=== PATIENT | female | born 1980 | race Two or more races ===

== ENCOUNTER 2020-08-04 12:22 | Inpatient (IN) | payer MEDICAID, OTHER ==
[~2020-08-04] VITALS: Ht 160 cm; Wt 87.3 kg
[2020-08-04 13:28] LABS: Basophils # (auto) 0.1 10 ^3/uL (0-0.2); Basophils % (auto) 1.1 % (0.0-2.0); Eosinophils # (auto) 0 10 ^3/uL (0-0.8); Eosinophils % (auto) 0.5 % (0.0-7.0); Hematocrit 28.6 % (36.0-46.0); Hemoglobin 9.2 g/dL (12.2-16.2); Lymphocytes # (auto) 0.5 10 ^3/uL (0.4-5.4); Lymphocytes % (auto) 10.4 % (10.0-50.0); Mean Corpuscular Hemoglobin 28.8 pg (28.0-32.0); Mean Corpuscular Hgb Conc. 32.1 g/dL (32.0-36.0); Mean Corpuscular Volume 89.8 fL (80.0-100.0); Monocytes # (auto) 0.6 10 ^3/uL (0-1.3); Monocytes % (auto) 13.4 % (0.0-12.0); Neutrophils # (auto) 3.6 10 ^3/uL (1.6-8.6); Neutrophils % (auto) 74.6 % (37.0-80.0); Platelet Count (auto) 272 10^3/uL (140-450); Red Blood Cells 3.18 10^6/uL (4.0-5.20); Red Cell Distribution Width 17.2 % (11.8-14.3); White Blood Cell 4.8 10^3/uL (4.4-10.8)
[2020-08-04] MEDS ORDERED: ONDANSETRON HCL 4 MG/2 ML VIAL IV ONE (13:30)
[2020-08-04] MEDS ORDERED: LABETALOL HCL 5 MG/ML 4ML SYRINGE IV ONE (13:30)
[2020-08-04 13:43] LABS: INR 1.21 (0.9-1.15)
[2020-08-04 13:47] LABS: Albumin 3.1 g/dL (3.4-5.0); Calcium 8.1 mg/dL (8.5-10.1); Potassium 4.6 mmol/L (3.5-5.1)
[2020-08-04 13:49] LABS: BUN/Creatinine Ratio 10.9
[2020-08-04 13:54] LABS: Bilirubin, Total 0.9 mg/dL (0.2-1.0); Total Protein 7.4 g/dL (6.4-8.2)
[2020-08-04] MEDS ORDERED: SODIUM CHL 0.9% 1000 ML BAG XX ONE (14:30)
[2020-08-04] MEDS ORDERED: NITROGLYCERIN 0.4 MG SL TAB SL PRN ×2 (14:45→15:30)
[2020-08-04] MEDS ORDERED: MORPHINE SULF INJ 2 MG/ML SYRINGE 1ML IV PRN ×3 (14:45→15:30)
[2020-08-04] MEDS ORDERED: CARV25TA55 PO (14:54)
[2020-08-04] MEDS ORDERED: FURO80TA3 PO (14:54)
[2020-08-04] MEDS ORDERED: SEVE800T20 PO (14:54)
[2020-08-04] MEDS ORDERED: CINA60TA2 PO (14:54)
[2020-08-04] MEDS ORDERED: FERR-20 PO (14:54)
[2020-08-04] MEDS ORDERED: B-CO-5 PO (14:55)
[2020-08-04 15:05] LABS: % Iron Saturation 10.7 % (15-50)
[2020-08-04] MEDS ORDERED: ONDANSETRON HCL 4 MG/2 ML VIAL IV PRN (15:30)
[2020-08-04] MEDS ORDERED: DOCUSATE SOD 100 MG CAP PO PRN (15:30)
[2020-08-04] MEDS ORDERED: ACETAMINOPHEN 325 MG TAB PO PRN (15:30)
[2020-08-04] MEDS ORDERED: VANCOMYCIN PER PHARMACY 0 MG IV SCH (15:30)
[2020-08-04] MEDS ORDERED: B-COMPLEX W/ C & FOLIC ACID(NEPHROVITE TAB) PO ONE (15:30)
[2020-08-04] MEDS ORDERED: LORazepam 0.5 MG TAB PO PRN (15:30)
[2020-08-04] MEDS ORDERED: ALUM & MAG HYDROX-SIMETH LIQ(MAALOX) 30 ML PO PRN (15:30)
[2020-08-04] MEDS ORDERED: MEROPENEM 500MG IVPB 50 ML IV ONE (15:30)
[2020-08-04] MEDS ORDERED: FUROSEMIDE 40 MG/4 ML VIAL IV ONE (15:30)
[2020-08-04] MEDS ORDERED: HYDROcodone-ACET 5/325MG TAB PO PRN (15:30)
[2020-08-04 16:15] LABS: Hepatitis A Ab IgM Negative; Hepatitis B Core IgM Negative; Hepatitis B Surface Antigen Negative (Negative); Hepatitis C Antibody Negative (Negative)
[2020-08-04] MEDS ORDERED: VANCOMYCIN 1GM/250ML 250 ML IV ONE (18:00)
[2020-08-04] MEDS: FUROSEMIDE 40 MG/4 ML VIAL IV SCH (20:51)
[2020-08-04] MEDS: FERROUS SULFATE 325 MG TAB PO SCH (20:52)
[2020-08-04] MEDS: SEVELAMER 800 MG TAB PO SCH (20:52)
[2020-08-04 22:00] VITALS: BP 183/100
[2020-08-04] MEDS: ATORVASTATIN 20 MG TAB PO SCH (22:13)
[2020-08-04] MEDS: CARVEDILOL 12.5 MG TAB PO SCH (22:14)
[2020-08-05 05:01] VITALS: BP 148/95
[2020-08-05] MEDS: FUROSEMIDE 40 MG/4 ML VIAL IV SCH ×2 (06:41→17:54)
[2020-08-05 07:56] LABS: Basophils # (auto) 0 10 ^3/uL (0-0.2); Basophils % (auto) 0.6 % (0.0-2.0); Eosinophils # (auto) 0 10 ^3/uL (0-0.8); Eosinophils % (auto) 0.6 % (0.0-7.0); Hematocrit 29.1 % (36.0-46.0); Hemoglobin 9.3 g/dL (12.2-16.2); Lymphocytes # (auto) 0.6 10 ^3/uL (0.4-5.4); Lymphocytes % (auto) 10.1 % (10.0-50.0); Mean Corpuscular Hemoglobin 28.9 pg (28.0-32.0); Mean Corpuscular Hgb Conc. 31.8 g/dL (32.0-36.0); Monocytes # (auto) 0.8 10 ^3/uL (0-1.3); Monocytes % (auto) 13.8 % (0.0-12.0); Neutrophils # (auto) 4.2 10 ^3/uL (1.6-8.6); Neutrophils % (auto) 74.9 % (37.0-80.0); Platelet Count (auto) 233 10^3/uL (140-450); White Blood Cell 5.7 10^3/uL (4.4-10.8)
[2020-08-05] MEDS: SEVELAMER 800 MG TAB PO SCH ×3 (08:00→17:54)
[2020-08-05] MEDS: FERROUS SULFATE 325 MG TAB PO SCH ×3 (08:00→17:54)
[2020-08-05 08:16] LABS: BUN/Creatinine Ratio 9.9; Calcium 8.5 mg/dL (8.5-10.1)
[2020-08-05 09:00] VITALS: BP 147/104
[2020-08-05] MEDS ORDERED: LISINOPRIL 20 MG TAB PO ONE (10:00)
[2020-08-05] MEDS: B-COMPLEX W/ C & FOLIC ACID(NEPHROVITE TAB) PO SCH (10:00)
[2020-08-05] MEDS: CINACALCET HYDROCHLORIDE 30 MG TAB PO SCH (10:00)
[2020-08-05] MEDS: CARVEDILOL 12.5 MG TAB PO SCH ×2 (10:00→22:47)
[2020-08-05] MEDS: ASPirin 81 mg TAB PO SCH (10:00)
[2020-08-05] MEDS ORDERED: MEROPENEM 500MG IVPB 50 ML IV SCH (10:00)
[2020-08-05] MEDS ORDERED: SODIUM FERR GLUC 62.5MG/5ML 125 MG in SODIUM CHL 0.9% 100 ML IV ONE (11:15)
[2020-08-05 13:00] VITALS: BP 135/66
[2020-08-05 16:08] LABS: Urine Bacteria NONE SEEN /hpf (None Seen); Urine Blood Negative /uL (Negative); Urine Mucus FEW (None Seen); Urine Specific Gravity 1.012 (1.001-1.035); Urine WBC 4 /hpf (0 - 5)
[2020-08-05 16:23] LABS: Alcohol, Urine < 3.0 mg/dL (0-10); Amphetamine Screen, Urine POSITIVE (NEGATIVE); Barbiturate Scree,Urine NEGATIVE (NEGATIVE); Benzodiazephine Screen, Urine NEGATIVE (NEGATIVE); Cannabinoid Screen, Urine POSITIVE (NEGATIVE); Cocaine Screen, Urine NEGATIVE (NEGATIVE); Opiate Scree,Urine NEGATIVE (NEGATIVE); Phencyclidine Screen, Urine NEGATIVE (NEGATIVE)
[2020-08-05 16:44] VITALS: BP 157/94
[2020-08-05 22:00] VITALS: BP 162/101
[2020-08-05] MEDS: ATORVASTATIN 20 MG TAB PO SCH (22:46)
[2020-08-06 05:00] VITALS: BP 180/103
[2020-08-06] MEDS: FUROSEMIDE 40 MG/4 ML VIAL IV SCH ×2 (06:00→18:12)
[2020-08-06 06:52] LABS: Basophils # (auto) 0 10 ^3/uL (0-0.2); Basophils % (auto) 0.9 % (0.0-2.0); Eosinophils # (auto) 0 10 ^3/uL (0-0.8); Eosinophils % (auto) 0.4 % (0.0-7.0); Hematocrit 28.2 % (36.0-46.0); Hemoglobin 9.1 g/dL (12.2-16.2); Lymphocytes # (auto) 0.5 10 ^3/uL (0.4-5.4); Lymphocytes % (auto) 9.2 % (10.0-50.0); Mean Corpuscular Hemoglobin 29.1 pg (28.0-32.0); Mean Corpuscular Hgb Conc. 32.1 g/dL (32.0-36.0); Mean Corpuscular Volume 90.6 fL (80.0-100.0); Monocytes # (auto) 0.4 10 ^3/uL (0-1.3); Neutrophils % (auto) 80.5 % (37.0-80.0); Nucleated Red Blood Cells % 0.2 %; Platelet Count (auto) 222 10^3/uL (140-450); Red Blood Cells 3.12 10^6/uL (4.0-5.20); Red Cell Distribution Width 17.2 % (11.8-14.3); White Blood Cell 4.9 10^3/uL (4.4-10.8)
[2020-08-06] MEDS ORDERED: SODIUM CHL 0.9% 1000 ML BAG XX ONE (07:00)
[2020-08-06 09:00] VITALS: BP 179/83
[2020-08-06] MEDS: ASPirin 81 mg TAB PO SCH (09:54)
[2020-08-06] MEDS: SEVELAMER 800 MG TAB PO SCH ×3 (09:54→18:00)
[2020-08-06] MEDS: CARVEDILOL 12.5 MG TAB PO SCH ×2 (09:54→21:35)
[2020-08-06] MEDS: FERROUS SULFATE 325 MG TAB PO SCH ×4 (09:55→21:34)
[2020-08-06] MEDS: B-COMPLEX W/ C & FOLIC ACID(NEPHROVITE TAB) PO SCH (09:55)
[2020-08-06] MEDS: CINACALCET HYDROCHLORIDE 30 MG TAB PO SCH (09:55)
[2020-08-06] MEDS: LISINOPRIL 20 MG TAB PO SCH (09:55)
[2020-08-06] MEDS: SODIUM FERR GLUC 62.5MG/5ML 125 MG in SODIUM CHL 0.9% 100 ML IV SCH (12:18)
[2020-08-06 13:00] VITALS: BP 113/83
[2020-08-06 16:54] VITALS: BP 153/98
[2020-08-06] MEDS ORDERED: EPOETIN ALFA 4,000 UNIT/ML VL SC ONE (21:00)
[2020-08-06] MEDS: ATORVASTATIN 20 MG TAB PO SCH (21:34)
[2020-08-06 21:52] VITALS: BP 149/83
[2020-08-07] VITALS (7 sets, daily range): BP systolic 146–171; BP diastolic 77–118
[2020-08-07] MEDS: FERROUS SULFATE 325 MG TAB PO SCH ×5 (06:25→17:46)
[2020-08-07] MEDS: FUROSEMIDE 40 MG/4 ML VIAL IV SCH (06:25)
[2020-08-07] MEDS ORDERED: SODIUM CHL 0.9% 1000 ML BAG XX ONE (07:00)
[2020-08-07 08:07] LABS: BUN/Creatinine Ratio 9.1; Calcium 8.8 mg/dL (8.5-10.1)
[2020-08-07] MEDS: SEVELAMER 800 MG TAB PO SCH ×3 (08:46→17:47)
[2020-08-07] MEDS: B-COMPLEX W/ C & FOLIC ACID(NEPHROVITE TAB) PO SCH (10:00)
[2020-08-07] MEDS: CINACALCET HYDROCHLORIDE 30 MG TAB PO SCH (10:00)
[2020-08-07] MEDS: CARVEDILOL 12.5 MG TAB PO SCH ×2 (10:00→21:59)
[2020-08-07] MEDS: ASPirin 81 mg TAB PO SCH (10:00)
[2020-08-07] MEDS ORDERED: LACTULOSE 20Gm/30ML SOLN PO PRN (10:00)
[2020-08-07] MEDS: LISINOPRIL 20 MG TAB PO SCH (10:00)
[2020-08-07 11:15] LABS: Hematocrit 29.9 % (36.0-46.0); Hemoglobin 9.6 g/dL (12.2-16.2)
[2020-08-07] MEDS: SODIUM FERR GLUC 62.5MG/5ML 125 MG in SODIUM CHL 0.9% 100 ML IV SCH (12:16)
[2020-08-07] MEDS ORDERED: cloNIDine HCL 0.1 MG TAB PO STA (13:59)
[2020-08-07] MEDS ORDERED: cloNIDine HCL 0.1 MG TAB PO PRN (16:30)
[2020-08-07] MEDS: BUMETANIDE 2.5mg/10ml (0.25 mg/ml) INJ IV SCH (17:46)
[2020-08-07] MEDS ORDERED: FERROUS SULFATE 325 MG TAB PO SCH (18:00)
[2020-08-07] MEDS ORDERED: EPOETIN ALFA 10,000 UNIT/1 ML VIAL SC ONE (21:00)
[2020-08-07] MEDS: ATORVASTATIN 20 MG TAB PO SCH (22:00)
[2020-08-08 05:00] VITALS: BP 136/91
[2020-08-08] MEDS: BUMETANIDE 2.5mg/10ml (0.25 mg/ml) INJ IV SCH (05:25)
[2020-08-08 07:26] LABS: Basophils # (auto) 0 10 ^3/uL (0-0.2); Basophils % (auto) 0.6 % (0.0-2.0); Eosinophils # (auto) 0.1 10 ^3/uL (0-0.8); Eosinophils % (auto) 0.7 % (0.0-7.0); Hemoglobin 8.7 g/dL (12.2-16.2); Lymphocytes # (auto) 0.7 10 ^3/uL (0.4-5.4); Lymphocytes % (auto) 9.9 % (10.0-50.0); Mean Corpuscular Hemoglobin 28.7 pg (28.0-32.0); Mean Corpuscular Hgb Conc. 32.2 g/dL (32.0-36.0); Mean Corpuscular Volume 89.1 fL (80.0-100.0); Monocytes % (auto) 13.6 % (0.0-12.0); Neutrophils # (auto) 5.5 10 ^3/uL (1.6-8.6); Neutrophils % (auto) 75.2 % (37.0-80.0); Nucleated Red Blood Cells % 0.2 %; Platelet Count (auto) 233 10^3/uL (140-450); Red Blood Cells 3.03 10^6/uL (4.0-5.20); Red Cell Distribution Width 16.8 % (11.8-14.3); White Blood Cell 7.3 10^3/uL (4.4-10.8)
[2020-08-08 07:50] LABS: BUN/Creatinine Ratio 8.3; Calcium 8.5 mg/dL (8.5-10.1); Phosphorus 4.2 mg/dL (2.5-4.90); Potassium 3.8 mmol/L (3.5-5.1)
[2020-08-08 08:00] VITALS: BP 156/99
[2020-08-08] MEDS: FERROUS SULFATE 325 MG TAB PO SCH ×2 (08:48→11:33)
[2020-08-08] MEDS: CARVEDILOL 12.5 MG TAB PO SCH (08:49)
[2020-08-08] MEDS: SEVELAMER 800 MG TAB PO SCH ×2 (08:49→11:32)
[2020-08-08] MEDS: ASPirin 81 mg TAB PO SCH (08:50)
[2020-08-08] MEDS: B-COMPLEX W/ C & FOLIC ACID(NEPHROVITE TAB) PO SCH (08:50)
[2020-08-08 09:02] VITALS: BP 131/79
[2020-08-08] MEDS: LISINOPRIL 20 MG TAB PO SCH (09:55)
[2020-08-08] MEDS: CINACALCET HYDROCHLORIDE 30 MG TAB PO SCH (09:55)
[2020-08-08] MEDS ORDERED: NIFEdipine ER 30 MG TAB PO SCH ×2 (10:00)
[2020-08-08] MEDS: SODIUM FERR GLUC 62.5MG/5ML 125 MG in SODIUM CHL 0.9% 100 ML IV SCH (12:00)
== END 2020-08-08 12:40 | disposition left against medical advice (07) | DRG 52 ==
LOC: ER 12:22 → EDBD 12:22 → TELE 12:23 → TELE-WESTW 21:25
PROVIDERS: ADMIT Hospitalist; ATTEND Internal Medicine
PROC: 5A1D70Z Performance of Urinary Filtration, Intermittent, Less than 6 Hours Per Day (ICD-10-PCS; principal; 2020-08-04)
PROC: 5A1D70Z Performance of Urinary Filtration, Intermittent, Less than 6 Hours Per Day (ICD-10-PCS; 2020-08-06)
PROC: 5A1D70Z Performance of Urinary Filtration, Intermittent, Less than 6 Hours Per Day (ICD-10-PCS; 2020-08-07)
DX: G93.41 Metabolic encephalopathy (principal); I13.2 Hypertensive heart and chronic kidney disease with heart failure and with stage 5 chronic kidney disease, or end stage renal disease; I50.43 Acute on chronic combined systolic (congestive) and diastolic (congestive) heart failure; N18.6 End stage renal disease; I16.1 Hypertensive emergency; E44.1 Mild protein-calorie malnutrition; E66.9 Obesity, unspecified; E78.5 Hyperlipidemia, unspecified; Z99.2 Dependence on renal dialysis; S01.81XA Laceration without foreign body of other part of head, initial encounter; D63.1 Anemia in chronic kidney disease; D68.4 Acquired coagulation factor deficiency; E11.22 Type 2 diabetes mellitus with diabetic chronic kidney disease; E61.1 Iron deficiency; E66.01 Morbid (severe) obesity due to excess calories; Z20.828 Contact with and (suspected) exposure to other viral communicable diseases; G47.30 Sleep apnea, unspecified; I07.1 Rheumatic tricuspid insufficiency; I27.20 Pulmonary hypertension, unspecified; I42.9 Cardiomyopathy, unspecified; I70.0 Atherosclerosis of aorta; K59.00 Constipation, unspecified; M89.9 Disorder of bone, unspecified; W18.30XA Fall on same level, unspecified, initial encounter; N25.0 Renal osteodystrophy; N25.81 Secondary hyperparathyroidism of renal origin; Z88.0 Allergy status to penicillin; Z79.899 Other long term (current) drug therapy; Z91.15 Patient's noncompliance with renal dialysis; Z91.19 Patient's noncompliance with other medical treatment and regimen; Y93.89 Activity, other specified; Y92.009 Unspecified place in unspecified non-institutional (private) residence as the place of occurrence of the external cause
CPT/HCPCS: 36415; 36600; 70450; 71045; 80048; 80053; 80061; 80074; 80202; 80307; 81001; 82728; 82805; 83036; 83540; 83550; 83880; 84100; 84443; 84484; 85014; 85018; 85025; 85610; 85730; 87040; 87081; 87086; 90935; 93005; 93306; 96365; 96367; 96375; 99291; G0378; J0885; J1642; J2185; J2405; J3490

== ENCOUNTER 2020-09-04 13:43 | Inpatient (IN) | payer MEDICAID ==
[~2020-09-04] VITALS: Ht 157.5 cm; Wt 76.0 kg
[~2020-09-04 13:43] MED LIST: B-CO-5 PO; CARV25TA55 PO; CINA60TA2 PO; FERR-20 PO; FURO80TA3 PO; SEVE800T20 PO
[2020-09-04] MEDS ORDERED: ROCURONIUM 10MG/ML 10ML VIAL IV ONE ×2 (14:28→14:30)
[2020-09-04] MEDS ORDERED: ETOMIDATE (2MG/ML) 20ML VIAL IV ONE ×2 (14:28→14:30)
[2020-09-04] MEDS ORDERED: FUROSEMIDE 20 MG/2 ML VIAL IV ONE (14:45)
[2020-09-04 15:00] LABS: Hematocrit 32.9 % (36.0-46.0); Hemoglobin 10.3 g/dL (12.2-16.2); Mean Corpuscular Hemoglobin 28.6 pg (28.0-32.0); Mean Corpuscular Hgb Conc. 31.4 g/dL (32.0-36.0); Platelet Count (auto) 184 10^3/uL (140-450); Red Blood Cells 3.62 10^6/uL (4.0-5.20); Red Cell Distribution Width 17.4 % (11.8-14.3); White Blood Cell 10.8 10^3/uL (4.4-10.8)
[2020-09-04 15:22] LABS: Albumin 3.5 g/dL (3.4-5.0); Calcium 9.4 mg/dL (8.5-10.1); Magnesium 2.9 mg/dL (1.6-2.6)
[2020-09-04 15:28] LABS: BUN/Creatinine Ratio 12.3; Bilirubin, Total 1.6 mg/dL (0.2-1.0); Total Protein 7.9 g/dL (6.4-8.2)
[2020-09-04 15:33] LABS: Potassium 7.4 mmol/L (3.5-5.1)
[2020-09-04 15:35] LABS: Phosphorus 10.3 mg/dL (2.5-4.90)
[2020-09-04 15:39] LABS: Basophils % (manual) 0 (0.0-2.0); Blast Cells 0; Promyelocytes % 0; Reactive Lymphocytes 0
[2020-09-04] MEDS ORDERED: DEXTROSE (50%) 50ML SYRG IV ONE ×2 (15:45→16:15)
[2020-09-04] MEDS ORDERED: SODIUM BICARBONATE 8.4% INJ 50ML SYRINGE IV ONE (15:45)
[2020-09-04] MEDS ORDERED: CALCIUM GLUC 4.65meq/50ml D5AE 50 ML IV ONE (15:45)
[2020-09-04] MEDS ORDERED: InsuLIN REG 1unit/0.01ml Soln (100units/ml) IV ONE ×2 (15:45→16:15)
[2020-09-04] MEDS: BUMETANIDE 2.5mg/10ml (0.25 mg/ml) INJ IV SCH (16:15)
[2020-09-04] MEDS ORDERED: SODIUM ZIRCONIUM CYCL 10 GM PAK PO ONE (16:15)
[2020-09-04] MEDS ORDERED: LACTULOSE 20Gm/30ML SOLN PO ONE (16:15)
[2020-09-04] MEDS ORDERED: ASPirin 325 MG TAB PO ONE (17:00)
[2020-09-04 17:15] LABS: Band Neutrophils % (manual) 7; Eosinophils % (manual) 1 (0-7); Lymphocytes % (manual) 3 (10.0-50.0); Metamyelocytes % 1; Monocytes % (manual) 5 (0-12); Myelocytes % 1
[2020-09-04] MEDS ORDERED: ENOXAPARIN SOD 100 MG/1 ML SYRINGE SC ONE (17:15)
[2020-09-04] MEDS ORDERED: ALUM & MAG HYDROX-SIMETH LIQ(MAALOX) 30 ML PO ONE (18:15)
[2020-09-04] MEDS ORDERED: MORPHINE SULFATE 4 MG/ML SYR/VIAL IV PRN (18:15)
[2020-09-04] MEDS ORDERED: ACETAMINOPHEN 500 MG TAB PO PRN (18:15)
[2020-09-04] MEDS ORDERED: ONDANSETRON HCL 4 MG/2 ML VIAL IV PRN (18:15)
[2020-09-04] MEDS ORDERED: MORPHINE SULF INJ 2 MG/ML SYRINGE 1ML IV PRN (18:15)
[2020-09-04] MEDS ORDERED: ZOLPIDEM TARTRATE 5 MG TAB PO PRN (18:15)
[2020-09-04] MEDS ORDERED: NITROGLYCERIN 0.4 MG SL TAB SL PRN (18:15)
[2020-09-05] MEDS: BUMETANIDE 2.5mg/10ml (0.25 mg/ml) INJ IV SCH ×4 (00:23→17:29)
[2020-09-05] MEDS ORDERED: SODIUM CHL 0.9% 1000 ML BAG XX ONE (07:00)
[2020-09-05] MEDS: SEVELAMER 800 MG TAB PO SCH ×3 (08:00→17:29)
[2020-09-05 08:23] LABS: Hematocrit 32.8 % (36.0-46.0); Hemoglobin 10.5 g/dL (12.2-16.2); Mean Corpuscular Hemoglobin 28.8 pg (28.0-32.0); Mean Corpuscular Volume 90.1 fL (80.0-100.0); Platelet Count (auto) 169 10^3/uL (140-450); Red Blood Cells 3.64 10^6/uL (4.0-5.20); Red Cell Distribution Width 17.3 % (11.8-14.3); White Blood Cell 14.2 10^3/uL (4.4-10.8)
[2020-09-05 08:29] LABS: Basophils % (manual) 0 (0.0-2.0); Blast Cells 0; Eosinophils % (manual) 0 (0-7); Metamyelocytes % 0; Promyelocytes % 0; Reactive Lymphocytes 0
[2020-09-05 08:44] LABS: Albumin 3.5 g/dL (3.4-5.0); Calcium 8.6 mg/dL (8.5-10.1); Magnesium 3.1 mg/dL (1.6-2.6)
[2020-09-05 08:54] LABS: BUN/Creatinine Ratio 11.9; Bilirubin, Total 1.9 mg/dL (0.2-1.0); Total Protein 8.1 g/dL (6.4-8.2)
[2020-09-05] MEDS ORDERED: CARVEDILOL 12.5 MG TAB PO SCH (10:00)
[2020-09-05] MEDS ORDERED: cefTRIAXone 1GM/50ML D5W 50 ML IV SCH (10:15)
[2020-09-05] MEDS ORDERED: HEPARIN DRIP/D5W 100UNITS/ML 250 ML IV SCH (10:30)
[2020-09-05] MEDS ORDERED: HEPARIN SODIUM (PORCINE) 5000 UNITS/ML 1ML VIAL IV ONE (10:30)
[2020-09-05 11:00] LABS: CRP High Sensitivity 10.9 mg/dL (< 0.3)
[2020-09-05 11:02] LABS: INR 2.14 (0.9-1.15); Partial Thromboplastin Time 44.4 sec (23.0-31.2)
[2020-09-05] MEDS: FERROUS SULFATE 325 MG TAB PO SCH (11:36)
[2020-09-05] MEDS: DOCUSATE SOD 100 MG CAP PO SCH (11:36)
[2020-09-05] MEDS: B-COMPLEX W/ C & FOLIC ACID(NEPHROVITE TAB) PO SCH (11:37)
[2020-09-05] MEDS: CINACALCET HYDROCHLORIDE 30 MG TAB PO SCH (11:37)
[2020-09-05] MEDS: ZINC SULFATE 220mg CAP or TAB PO SCH (11:37)
[2020-09-05] MEDS: CHOLECALCIFEROL (VITD3) 1,000UNIT=25mCg TAB PO SCH (11:38)
[2020-09-05] MEDS: ASPirin 81 mg TAB PO SCH (11:38)
[2020-09-05] MEDS: ASCORBIC ACID 500 MG TAB PO SCH (11:38)
[2020-09-05] MEDS: hydrALAZINE HCL 20 MG/ML VL IV PRN ×3 (12:02→13:50)
[2020-09-05] MEDS: HEPARIN DRIP/D5W 100UNITS/ML 250 ML IV SCH (12:02)
[2020-09-05 12:50] LABS: Urine Bacteria FEW /hpf (None Seen); Urine Blood 3+ /uL (Negative); Urine Hyaline Cast FEW /lpf (0 - 2); Urine Specific Gravity 1.012 (1.001-1.035); Urine WBC 17 /hpf (0 - 5)
[2020-09-05] MEDS ORDERED: hydrALAZINE HCL 20 MG/ML VL IV ONE (13:00)
[2020-09-05 13:07] LABS: Band Neutrophils % (manual) 6; Lymphocytes % (manual) 4 (10.0-50.0); Monocytes % (manual) 2 (0-12); Myelocytes % 3
[2020-09-05 15:04] LABS: Albumin 3.1 g/dL (3.4-5.0); BUN/Creatinine Ratio 11.8; Calcium 8.1 mg/dL (8.5-10.1); Potassium 5.5 mmol/L (3.5-5.1)
[2020-09-05 15:27] LABS: Total Protein 7.1 g/dL (6.4-8.2)
[2020-09-05] MEDS ORDERED: IODIXANOL 320MG/ML 100ML BTL IV ONE (16:03)
[2020-09-05 19:48] LABS: INR 2.11 (0.9-1.15)
[2020-09-05] MEDS ORDERED: EPOETIN ALFA 10,000 UNIT/1 ML VIAL IV ONE (21:00)
[2020-09-05 21:21] VITALS: BP 143/89
[2020-09-05] MEDS: CARVEDILOL 12.5 MG TAB PO SCH (21:44)
[2020-09-05 22:58] VITALS: BP 143/89
[2020-09-06] VITALS (7 sets, daily range): BP systolic 113–156; BP diastolic 67–73
[2020-09-06] MEDS: BUMETANIDE 2.5mg/10ml (0.25 mg/ml) INJ IV SCH ×4 (00:25→17:44)
[2020-09-06] MEDS: LORazepam 0.5 MG TAB PO PRN (00:38)
[2020-09-06 01:20] LABS: INR 2.13 (0.9-1.15)
[2020-09-06 01:24] LABS: Partial Thromboplastin Time > 139.0 sec (23.0-31.2)
[2020-09-06] MEDS: HEPARIN DRIP/D5W 100UNITS/ML 250 ML IV SCH (03:05)
[2020-09-06 05:42] LABS: Hematocrit 28.3 % (36.0-46.0); Mean Corpuscular Hemoglobin 28.8 pg (28.0-32.0); Mean Corpuscular Volume 90.2 fL (80.0-100.0); Platelet Count (auto) 115 10^3/uL (140-450); Red Blood Cells 3.13 10^6/uL (4.0-5.20); Red Cell Distribution Width 17.2 % (11.8-14.3); White Blood Cell 8.9 10^3/uL (4.4-10.8)
[2020-09-06 05:46] LABS: Basophils % (manual) 0 (0.0-2.0); Blast Cells 0; Eosinophils % (manual) 0 (0-7); Metamyelocytes % 0; Monocytes % (manual) 0 (0-12); Promyelocytes % 0; Reactive Lymphocytes 0
[2020-09-06 06:05] LABS: Albumin 2.6 g/dL (3.4-5.0); BUN/Creatinine Ratio 13.3; Calcium 7.7 mg/dL (8.5-10.1); Magnesium 2.8 mg/dL (1.6-2.6)
[2020-09-06 06:08] LABS: Potassium 5.9 mmol/L (3.5-5.1)
[2020-09-06 06:09] LABS: Bilirubin, Total 1.6 mg/dL (0.2-1.0); Total Protein 6.2 g/dL (6.4-8.2)
[2020-09-06 06:32] LABS: Band Neutrophils % (manual) 17; Lymphocytes % (manual) 3 (10.0-50.0); Myelocytes % 1
[2020-09-06] MEDS ORDERED: SODIUM CHL 0.9% 1000 ML BAG XX ONE ×2 (07:00→08:00)
[2020-09-06] MEDS: SEVELAMER 800 MG TAB PO SCH ×3 (08:00→17:43)
[2020-09-06] MEDS: FERROUS SULFATE 325 MG TAB PO SCH (08:00)
[2020-09-06] MEDS: CHOLECALCIFEROL (VITD3) 1,000UNIT=25mCg TAB PO SCH (10:00)
[2020-09-06] MEDS: CINACALCET HYDROCHLORIDE 30 MG TAB PO SCH (10:00)
[2020-09-06] MEDS: ZINC SULFATE 220mg CAP or TAB PO SCH (10:00)
[2020-09-06] MEDS: ASPirin 81 mg TAB PO SCH (10:00)
[2020-09-06] MEDS: CARVEDILOL 12.5 MG TAB PO SCH ×2 (10:00→22:50)
[2020-09-06] MEDS: DOCUSATE SOD 100 MG CAP PO SCH (10:00)
[2020-09-06] MEDS: B-COMPLEX W/ C & FOLIC ACID(NEPHROVITE TAB) PO SCH (10:00)
[2020-09-06] MEDS: ASCORBIC ACID 500 MG TAB PO SCH (10:00)
[2020-09-06] MEDS: cefTRIAXone 1GM/50ML D5W 50 ML IV SCH (12:00)
[2020-09-06] MEDS: DexAMETHasone SOD PHOS 10MG/1ML VIAL INJ IV SCH (12:05)
[2020-09-06] MEDS: AZITHROMYCIN 500MG/ 250ML 250 ML IV SCH (12:56)
[2020-09-06] MEDS ORDERED: REMDESIVIR PER PHARMACY 0 ML IV SCH (17:00)
[2020-09-06] MEDS ORDERED: EPOETIN ALFA 4,000 UNIT/ML VL SC ONE (21:00)
[2020-09-06] MEDS ORDERED: ACETAMINOPHEN 650 MG RECT SUPP PR PRN (21:30)
[2020-09-07] MEDS: BUMETANIDE 2.5mg/10ml (0.25 mg/ml) INJ IV SCH ×4 (00:38→18:26)
[2020-09-07 05:00] VITALS: BP 115/58
[2020-09-07 07:05] LABS: Basophils # (auto) 0 10 ^3/uL (0-0.2); Basophils % (auto) 0.2 % (0.0-2.0); Eosinophils # (auto) 0 10 ^3/uL (0-0.8); Hematocrit 26.4 % (36.0-46.0); Hemoglobin 8.5 g/dL (12.2-16.2); Lymphocytes # (auto) 0.4 10 ^3/uL (0.4-5.4); Lymphocytes % (auto) 3.7 % (10.0-50.0); Mean Corpuscular Hemoglobin 29.1 pg (28.0-32.0); Mean Corpuscular Hgb Conc. 32.1 g/dL (32.0-36.0); Mean Corpuscular Volume 90.7 fL (80.0-100.0); Monocytes # (auto) 0.5 10 ^3/uL (0-1.3); Monocytes % (auto) 5.3 % (0.0-12.0); Neutrophils # (auto) 8.8 10 ^3/uL (1.6-8.6); Neutrophils % (auto) 90.8 % (37.0-80.0); Platelet Count (auto) 89 10^3/uL (140-450); Red Blood Cells 2.91 10^6/uL (4.0-5.20); Red Cell Distribution Width 17.2 % (11.8-14.3); White Blood Cell 9.7 10^3/uL (4.4-10.8)
[2020-09-07 07:27] LABS: INR 1.42 (0.9-1.15); Partial Thromboplastin Time 41.9 sec (23.0-31.2)
[2020-09-07 07:28] LABS: Albumin 2.2 g/dL (3.4-5.0); BUN/Creatinine Ratio 15.1; Bilirubin, Total 1.1 mg/dL (0.2-1.0); CRP High Sensitivity 9.44 mg/dL (< 0.3); Calcium 7.7 mg/dL (8.5-10.1); Magnesium 2.5 mg/dL (1.6-2.6); Total Protein 5.5 g/dL (6.4-8.2)
[2020-09-07] MEDS: FERROUS SULFATE 325 MG TAB PO SCH (08:00)
[2020-09-07] MEDS: SEVELAMER 800 MG TAB PO SCH ×3 (08:00→18:00)
[2020-09-07 09:00] VITALS: BP 111/69
[2020-09-07] MEDS: CARVEDILOL 12.5 MG TAB PO SCH ×2 (09:50→22:00)
[2020-09-07] MEDS: ASPirin 81 mg TAB PO SCH (09:50)
[2020-09-07] MEDS: DOCUSATE SOD 100 MG CAP PO SCH (09:50)
[2020-09-07] MEDS: ZINC SULFATE 220mg CAP or TAB PO SCH (09:50)
[2020-09-07] MEDS: CINACALCET HYDROCHLORIDE 30 MG TAB PO SCH (09:51)
[2020-09-07] MEDS: B-COMPLEX W/ C & FOLIC ACID(NEPHROVITE TAB) PO SCH (09:51)
[2020-09-07] MEDS: ASCORBIC ACID 500 MG TAB PO SCH (09:51)
[2020-09-07] MEDS: CHOLECALCIFEROL (VITD3) 1,000UNIT=25mCg TAB PO SCH (09:51)
[2020-09-07] MEDS: cefTRIAXone 1GM/50ML D5W 50 ML IV SCH (11:30)
[2020-09-07] MEDS: DexAMETHasone SOD PHOS 10MG/1ML VIAL INJ IV SCH (11:31)
[2020-09-07] MEDS: AZITHROMYCIN 500MG/ 250ML 250 ML IV SCH (11:31)
[2020-09-07] MEDS: PANTOPRAZOLE 40 MG/10 ML VIAL INJ IV SCH ×2 (11:31→22:04)
[2020-09-07] MEDS: HEPARIN DRIP/D5W 100UNITS/ML 250 ML IV SCH (12:23)
[2020-09-07 13:00] VITALS: BP 114/64
[2020-09-07] MEDS ORDERED: REMDESIVIR 200 MG in NS 210ml LOADING DOSE ADULT IV ONE (15:00)
[2020-09-07 17:00] VITALS: BP 126/72
[2020-09-07 20:00] VITALS: BP 115/83
[2020-09-07 22:00] VITALS: BP 115/83
[2020-09-08] MEDS: BUMETANIDE 2.5mg/10ml (0.25 mg/ml) INJ IV SCH ×4 (00:19→18:09)
[2020-09-08 05:00] VITALS: BP 118/74
[2020-09-08 06:28] LABS: Albumin 2.1 g/dL (3.4-5.0); Calcium 7.1 mg/dL (8.5-10.1); Magnesium 2.8 mg/dL (1.6-2.6); Potassium 5.4 mmol/L (3.5-5.1)
[2020-09-08 06:33] LABS: % Iron Saturation 13.7 % (15-50)
[2020-09-08 06:37] LABS: BUN/Creatinine Ratio 15.5; Bilirubin, Total 0.8 mg/dL (0.2-1.0); CRP High Sensitivity 8.42 mg/dL (< 0.3); Pre Albumin 7.9 mg/dL (20.0-40.0); Total Protein 5.8 g/dL (6.4-8.2)
[2020-09-08 06:54] LABS: Basophils # (auto) 0.1 10 ^3/uL (0-0.2); Basophils % (auto) 0.5 % (0.0-2.0); Eosinophils # (auto) 0 10 ^3/uL (0-0.8); Hematocrit 26.9 % (36.0-46.0); Hemoglobin 8.6 g/dL (12.2-16.2); Lymphocytes # (auto) 0.3 10 ^3/uL (0.4-5.4); Lymphocytes % (auto) 2.4 % (10.0-50.0); Mean Corpuscular Hemoglobin 29.3 pg (28.0-32.0); Mean Corpuscular Hgb Conc. 31.9 g/dL (32.0-36.0); Mean Corpuscular Volume 91.8 fL (80.0-100.0); Monocytes # (auto) 0.7 10 ^3/uL (0-1.3); Monocytes % (auto) 6.1 % (0.0-12.0); Neutrophils # (auto) 10.1 10 ^3/uL (1.6-8.6); Nucleated Red Blood Cells % 1.4 %; Platelet Count (auto) 74 10^3/uL (140-450); Red Blood Cells 2.93 10^6/uL (4.0-5.20); Red Cell Distribution Width 17.8 % (11.8-14.3); White Blood Cell 11.1 10^3/uL (4.4-10.8)
[2020-09-08 06:56] LABS: INR 1.19 (0.9-1.15); Partial Thromboplastin Time 54.8 sec (23.0-31.2)
[2020-09-08 09:00] VITALS: BP 136/72
[2020-09-08] MEDS: cefTRIAXone 1GM/50ML D5W 50 ML IV SCH (09:18)
[2020-09-08] MEDS: PANTOPRAZOLE 40 MG/10 ML VIAL INJ IV SCH ×2 (09:18→21:34)
[2020-09-08] MEDS: ZINC SULFATE 220mg CAP or TAB PO SCH (09:19)
[2020-09-08] MEDS: ASPirin 81 mg TAB PO SCH (09:19)
[2020-09-08] MEDS: B-COMPLEX W/ C & FOLIC ACID(NEPHROVITE TAB) PO SCH (09:19)
[2020-09-08] MEDS: SEVELAMER 800 MG TAB PO SCH ×3 (09:20→18:09)
[2020-09-08] MEDS: ASCORBIC ACID 500 MG TAB PO SCH (09:20)
[2020-09-08] MEDS: FERROUS SULFATE 325 MG TAB PO SCH (09:21)
[2020-09-08] MEDS: DexAMETHasone SOD PHOS 10MG/1ML VIAL INJ IV SCH (09:21)
[2020-09-08] MEDS: CHOLECALCIFEROL (VITD3) 1,000UNIT=25mCg TAB PO SCH (09:21)
[2020-09-08 09:41] LABS: Ferritin 1157.2 ng/mL (10-322); Folate (Folic Acid) 5.71 ng/mL (5.38-24)
[2020-09-08] MEDS: CINACALCET HYDROCHLORIDE 30 MG TAB PO SCH (09:48)
[2020-09-08] MEDS: CARVEDILOL 12.5 MG TAB PO SCH ×2 (09:48→21:35)
[2020-09-08] MEDS: DOCUSATE SOD 100 MG CAP PO SCH (09:48)
[2020-09-08] MEDS: AZITHROMYCIN 500MG/ 250ML 250 ML IV SCH (09:50)
[2020-09-08 12:00] VITALS: BP 131/73
[2020-09-08] MEDS ORDERED: REMDESIVIR IV SCH (15:00)
[2020-09-08] MEDS ORDERED: REMDESIVIR 100 MG in SODIUM CHL 0.9% 250 ML IV SCH (15:00)
[2020-09-08] MEDS ORDERED: SODIUM CHL 0.9% IV SCH (15:00)
[2020-09-08] MEDS: HEPARIN DRIP/D5W 100UNITS/ML 250 ML IV SCH (17:56)
[2020-09-08 21:48] LABS: INR 1.21 (0.9-1.15); Partial Thromboplastin Time 52.2 sec (23.0-31.2)
[2020-09-08 22:00] VITALS: BP 137/104
[2020-09-09] MEDS: BUMETANIDE 2.5mg/10ml (0.25 mg/ml) INJ IV SCH ×4 (01:04→17:49)
[2020-09-09 05:00] VITALS: BP 149/83
[2020-09-09 05:14] LABS: INR 1.23 (0.9-1.15); Partial Thromboplastin Time 48.6 sec (23.0-31.2)
[2020-09-09 05:26] LABS: CRP High Sensitivity 7.2 mg/dL (< 0.3)
[2020-09-09] MEDS: HEPARIN DRIP/D5W 100UNITS/ML 250 ML IV SCH (06:45)
[2020-09-09] MEDS: SEVELAMER 800 MG TAB PO SCH ×3 (08:00→18:13)
[2020-09-09] MEDS: FERROUS SULFATE 325 MG TAB PO SCH (08:00)
[2020-09-09 12:00] VITALS: BP 142/67
[2020-09-09] MEDS: ZINC SULFATE 220mg CAP or TAB PO SCH (13:15)
[2020-09-09] MEDS: B-COMPLEX W/ C & FOLIC ACID(NEPHROVITE TAB) PO SCH (13:15)
[2020-09-09] MEDS: ASCORBIC ACID 500 MG TAB PO SCH (13:15)
[2020-09-09] MEDS: ASPirin 81 mg TAB PO SCH (13:15)
[2020-09-09] MEDS: DexAMETHasone SOD PHOS 10MG/1ML VIAL INJ IV SCH (13:15)
[2020-09-09] MEDS: CINACALCET HYDROCHLORIDE 30 MG TAB PO SCH (13:15)
[2020-09-09] MEDS: PANTOPRAZOLE 40 MG/10 ML VIAL INJ IV SCH ×2 (13:15→22:11)
[2020-09-09] MEDS: cefTRIAXone 1GM/50ML D5W 50 ML IV SCH (13:15)
[2020-09-09] MEDS: CARVEDILOL 12.5 MG TAB PO SCH ×2 (13:15→22:00)
[2020-09-09] MEDS: CHOLECALCIFEROL (VITD3) 1,000UNIT=25mCg TAB PO SCH (13:15)
[2020-09-09] MEDS: DOCUSATE SOD 100 MG CAP PO SCH (13:29)
[2020-09-09] MEDS: AZITHROMYCIN 500MG/ 250ML 250 ML IV SCH (14:00)
[2020-09-09 17:00] VITALS: BP 86/57
[2020-09-09] MEDS ORDERED: ALBUMIN 25% 100 ML IV ONE (17:30)
[2020-09-09 22:00] VITALS: BP 101/55
[2020-09-10] VITALS (7 sets, daily range): BP systolic 92–146; BP diastolic 64–80
[2020-09-10] MEDS: BUMETANIDE 2.5mg/10ml (0.25 mg/ml) INJ IV SCH ×4 (00:57→18:00)
[2020-09-10] MEDS ORDERED: REMDESIVIR IV ONE (01:00)
[2020-09-10] MEDS ORDERED: SODIUM CHL 0.9% IV ONE (01:00)
[2020-09-10] MEDS: SEVELAMER 800 MG TAB PO SCH ×3 (08:00→18:00)
[2020-09-10] MEDS: FERROUS SULFATE 325 MG TAB PO SCH (08:00)
[2020-09-10] MEDS ORDERED: SODIUM CHL 0.9% 1000 ML BAG XX ONE (08:45)
[2020-09-10] MEDS: cefTRIAXone 1GM/50ML D5W 50 ML IV SCH (09:00)
[2020-09-10] MEDS: AZITHROMYCIN 500MG/ 250ML 250 ML IV SCH (10:00)
[2020-09-10] MEDS: DOCUSATE SOD 100 MG CAP PO SCH (10:00)
[2020-09-10 10:52] LABS: Basophils # (auto) 0 10 ^3/uL (0-0.2); Eosinophils # (auto) 0 10 ^3/uL (0-0.8); Hemoglobin 8.3 g/dL (12.2-16.2); Lymphocytes # (auto) 0.4 10 ^3/uL (0.4-5.4); Neutrophils # (auto) 13.7 10 ^3/uL (1.6-8.6)
[2020-09-10 10:54] LABS: Basophils % (auto) 0.1 % (0.0-2.0); Hematocrit 26.1 % (36.0-46.0); Lymphocytes % (auto) 2.6 % (10.0-50.0); Mean Corpuscular Hemoglobin 28.9 pg (28.0-32.0); Mean Corpuscular Hgb Conc. 31.9 g/dL (32.0-36.0); Mean Corpuscular Volume 90.4 fL (80.0-100.0); Monocytes # (auto) 1.1 10 ^3/uL (0-1.3); Monocytes % (auto) 7.5 % (0.0-12.0); Neutrophils % (auto) 89.8 % (37.0-80.0); Nucleated Red Blood Cells % 1.2 %; Platelet Count (auto) 82 10^3/uL (140-450); Red Blood Cells 2.89 10^6/uL (4.0-5.20); Red Cell Distribution Width 18.1 % (11.8-14.3); White Blood Cell 15.2 10^3/uL (4.4-10.8)
[2020-09-10 11:11] LABS: BUN/Creatinine Ratio 17.2; Calcium 6.8 mg/dL (8.5-10.1); Magnesium 2.4 mg/dL (1.6-2.6); Potassium 4.3 mmol/L (3.5-5.1)
[2020-09-10 11:20] LABS: Bilirubin, Total 0.7 mg/dL (0.2-1.0); CRP High Sensitivity 6.46 mg/dL (< 0.3); Phosphorus 5.2 mg/dL (2.5-4.90); Total Protein 7.1 g/dL (6.4-8.2)
[2020-09-10] MEDS: ASPirin 81 mg TAB PO SCH (13:12)
[2020-09-10] MEDS: PANTOPRAZOLE 40 MG/10 ML VIAL INJ IV SCH ×2 (13:12→21:38)
[2020-09-10] MEDS: DexAMETHasone SOD PHOS 10MG/1ML VIAL INJ IV SCH (13:12)
[2020-09-10] MEDS: ZINC SULFATE 220mg CAP or TAB PO SCH (13:13)
[2020-09-10] MEDS: ASCORBIC ACID 500 MG TAB PO SCH (13:14)
[2020-09-10] MEDS: CARVEDILOL 12.5 MG TAB PO SCH ×2 (13:14→21:35)
[2020-09-10] MEDS: CHOLECALCIFEROL (VITD3) 1,000UNIT=25mCg TAB PO SCH (13:14)
[2020-09-10] MEDS: CINACALCET HYDROCHLORIDE 30 MG TAB PO SCH (13:14)
[2020-09-10] MEDS: B-COMPLEX W/ C & FOLIC ACID(NEPHROVITE TAB) PO SCH (14:48)
[2020-09-10] MEDS: SODIUM CHL 0.9% IV SCH (15:38)
[2020-09-10] MEDS: REMDESIVIR IV SCH (15:38)
[2020-09-10] MEDS ORDERED: EPOETIN ALFA 4,000 UNIT/ML VL SC ONE (21:00)
[2020-09-11] MEDS: BUMETANIDE 2.5mg/10ml (0.25 mg/ml) INJ IV SCH ×4 (05:47→18:23)
[2020-09-11] MEDS: FERROUS SULFATE 325 MG TAB PO SCH (08:56)
[2020-09-11] MEDS: SEVELAMER 800 MG TAB PO SCH ×3 (08:56→18:23)
[2020-09-11] MEDS: cefTRIAXone 1GM/50ML D5W 50 ML IV SCH (08:56)
[2020-09-11 09:00] VITALS: BP 139/105
[2020-09-11] MEDS: DexAMETHasone SOD PHOS 10MG/1ML VIAL INJ IV SCH (09:51)
[2020-09-11] MEDS: AZITHROMYCIN 500MG/ 250ML 250 ML IV SCH (09:51)
[2020-09-11] MEDS: ASPirin 81 mg TAB PO SCH (09:51)
[2020-09-11] MEDS: PANTOPRAZOLE 40 MG/10 ML VIAL INJ IV SCH ×2 (09:51→21:57)
[2020-09-11] MEDS: ZINC SULFATE 220mg CAP or TAB PO SCH (09:52)
[2020-09-11] MEDS: CINACALCET HYDROCHLORIDE 30 MG TAB PO SCH (09:53)
[2020-09-11] MEDS: B-COMPLEX W/ C & FOLIC ACID(NEPHROVITE TAB) PO SCH (09:53)
[2020-09-11] MEDS: CHOLECALCIFEROL (VITD3) 1,000UNIT=25mCg TAB PO SCH (09:54)
[2020-09-11] MEDS: ASCORBIC ACID 500 MG TAB PO SCH (09:54)
[2020-09-11] MEDS: DOCUSATE SOD 100 MG CAP PO SCH (10:00)
[2020-09-11] MEDS: CARVEDILOL 12.5 MG TAB PO SCH ×2 (10:06→21:57)
[2020-09-11 10:37] LABS: Albumin 2.6 g/dL (3.4-5.0); Calcium 6.3 mg/dL (8.5-10.1); Potassium 4.8 mmol/L (3.5-5.1)
[2020-09-11 10:40] LABS: BUN/Creatinine Ratio 16.1; Bilirubin, Total 0.6 mg/dL (0.2-1.0); Phosphorus 6.7 mg/dL (2.5-4.90); Total Protein 6.5 g/dL (6.4-8.2)
[2020-09-11 13:00] VITALS: BP 132/85
[2020-09-11] MEDS: REMDESIVIR IV SCH (15:15)
[2020-09-11] MEDS: SODIUM CHL 0.9% IV SCH (15:15)
[2020-09-11 17:00] VITALS: BP 149/80
[2020-09-11 21:55] VITALS: BP 132/92
[2020-09-12] MEDS: BUMETANIDE 2.5mg/10ml (0.25 mg/ml) INJ IV SCH ×4 (01:05→18:20)
[2020-09-12 05:00] VITALS: BP 161/89
[2020-09-12] MEDS ORDERED: SODIUM CHL 0.9% 1000 ML BAG XX ONE (07:00)
[2020-09-12 08:00] VITALS: BP 161/89
[2020-09-12] MEDS: FERROUS SULFATE 325 MG TAB PO SCH (08:29)
[2020-09-12] MEDS: SEVELAMER 800 MG TAB PO SCH ×3 (08:30→18:20)
[2020-09-12 09:00] VITALS: BP 148/89
[2020-09-12] MEDS: DOCUSATE SOD 100 MG CAP PO SCH (10:00)
[2020-09-12] MEDS: cefTRIAXone 1GM/50ML D5W 50 ML IV SCH (10:10)
[2020-09-12] MEDS: DexAMETHasone SOD PHOS 10MG/1ML VIAL INJ IV SCH (10:11)
[2020-09-12] MEDS: PANTOPRAZOLE 40 MG/10 ML VIAL INJ IV SCH ×2 (10:11→22:14)
[2020-09-12 11:13] LABS: Albumin 2.5 g/dL (3.4-5.0); Calcium 6.6 mg/dL (8.5-10.1); Potassium 5.2 mmol/L (3.5-5.1)
[2020-09-12 11:18] LABS: BUN/Creatinine Ratio 16.5; Bilirubin, Total 0.6 mg/dL (0.2-1.0); Total Protein 6.1 g/dL (6.4-8.2)
[2020-09-12 13:00] VITALS: BP 133/77
[2020-09-12] MEDS: SODIUM CHL 0.9% IV SCH (15:30)
[2020-09-12] MEDS: REMDESIVIR IV SCH (15:30)
[2020-09-12] MEDS: ZINC SULFATE 220mg CAP or TAB PO SCH (16:01)
[2020-09-12] MEDS: ASPirin 81 mg TAB PO SCH (16:01)
[2020-09-12] MEDS: CINACALCET HYDROCHLORIDE 30 MG TAB PO SCH (16:03)
[2020-09-12] MEDS: B-COMPLEX W/ C & FOLIC ACID(NEPHROVITE TAB) PO SCH (16:03)
[2020-09-12] MEDS: ASCORBIC ACID 500 MG TAB PO SCH (16:03)
[2020-09-12] MEDS: CARVEDILOL 12.5 MG TAB PO SCH ×2 (16:03→22:15)
[2020-09-12] MEDS: AZITHROMYCIN 250 MG TAB PO SCH (16:04)
[2020-09-12] MEDS: CHOLECALCIFEROL (VITD3) 1,000UNIT=25mCg TAB PO SCH (16:04)
[2020-09-12 17:00] VITALS: BP 140/95
[2020-09-12] MEDS ORDERED: EPOETIN ALFA 10,000 UNIT/1 ML VIAL SC ONE (21:00)
[2020-09-12 22:00] VITALS: BP 192/93
[2020-09-12] MEDS: LORazepam 0.5 MG TAB PO PRN (22:15)
[2020-09-13 05:00] VITALS: BP 167/90
[2020-09-13 09:00] VITALS: BP 144/7
[2020-09-13 10:25] LABS: Hemoglobin 7.2 g/dL (12.2-16.2)
[2020-09-13 10:27] LABS: Hematocrit 22.6 % (36.0-46.0); Mean Corpuscular Hemoglobin 28.9 pg (28.0-32.0); Mean Corpuscular Hgb Conc. 31.8 g/dL (32.0-36.0); Mean Corpuscular Volume 90.9 fL (80.0-100.0); Platelet Count (auto) 130 10^3/uL (140-450); Red Blood Cells 2.48 10^6/uL (4.0-5.20); Red Cell Distribution Width 19.2 % (11.8-14.3); White Blood Cell 15.9 10^3/uL (4.4-10.8)
[2020-09-13 10:41] LABS: Basophils % (manual) 0 (0.0-2.0); Blast Cells 0; Eosinophils % (manual) 0 (0-7); Metamyelocytes % 0; Myelocytes % 0; Promyelocytes % 0; Reactive Lymphocytes 0
[2020-09-13 11:03] LABS: Potassium 4.8 mmol/L (3.5-5.1)
[2020-09-13 11:33] LABS: Albumin 2.4 g/dL (3.4-5.0); BUN/Creatinine Ratio 14.6; Bilirubin, Total 0.6 mg/dL (0.2-1.0); Calcium 7.2 mg/dL (8.5-10.1); Magnesium 2.7 mg/dL (1.6-2.6); Total Protein 6.2 g/dL (6.4-8.2)
[2020-09-13] MEDS: ZINC SULFATE 220mg CAP or TAB PO SCH (12:30)
[2020-09-13] MEDS: AZITHROMYCIN 250 MG TAB PO SCH (12:30)
[2020-09-13] MEDS: PANTOPRAZOLE 40 MG/10 ML VIAL INJ IV SCH ×2 (12:30→22:23)
[2020-09-13] MEDS: CHOLECALCIFEROL (VITD3) 1,000UNIT=25mCg TAB PO SCH (12:30)
[2020-09-13] MEDS: ASCORBIC ACID 500 MG TAB PO SCH (12:30)
[2020-09-13] MEDS: DexAMETHasone SOD PHOS 10MG/1ML VIAL INJ IV SCH (12:30)
[2020-09-13] MEDS: ASPirin 81 mg TAB PO SCH (12:30)
[2020-09-13] MEDS: CINACALCET HYDROCHLORIDE 30 MG TAB PO SCH (12:30)
[2020-09-13] MEDS: FERROUS SULFATE 325 MG TAB PO SCH (12:30)
[2020-09-13] MEDS: SEVELAMER 800 MG TAB PO SCH ×3 (12:30→18:00)
[2020-09-13] MEDS: DOCUSATE SOD 100 MG CAP PO SCH (12:30)
[2020-09-13] MEDS: B-COMPLEX W/ C & FOLIC ACID(NEPHROVITE TAB) PO SCH (12:30)
[2020-09-13] MEDS: CARVEDILOL 12.5 MG TAB PO SCH ×2 (12:30→22:24)
[2020-09-13 12:42] VITALS: BP 152/96
[2020-09-13] MEDS: cefTRIAXone 1GM/50ML D5W 50 ML IV SCH (12:52)
[2020-09-13 14:20] LABS: Band Neutrophils % (manual) 3
[2020-09-13 14:21] LABS: Lymphocytes % (manual) 2 (10.0-50.0); Monocytes % (manual) 5 (0-12)
[2020-09-13 17:00] VITALS: BP 151/87
[2020-09-13 22:00] VITALS: BP 162/84
[2020-09-14 05:00] VITALS: BP 150/71
[2020-09-14 06:33] LABS: Basophils # (auto) 0 10 ^3/uL (0-0.2); Eosinophils # (auto) 0 10 ^3/uL (0-0.8); Hemoglobin 7.3 g/dL (12.2-16.2); Mean Corpuscular Hemoglobin 29.3 pg (28.0-32.0); Nucleated Red Blood Cells % 0.3 %; White Blood Cell 15.1 10^3/uL (4.4-10.8)
[2020-09-14 06:36] LABS: Basophils % (auto) 0.1 % (0.0-2.0); Hematocrit 22.8 % (36.0-46.0); Lymphocytes # (auto) 0.3 10 ^3/uL (0.4-5.4); Lymphocytes % (auto) 2.2 % (10.0-50.0); Mean Corpuscular Hgb Conc. 31.9 g/dL (32.0-36.0); Mean Corpuscular Volume 91.7 fL (80.0-100.0); Monocytes # (auto) 0.8 10 ^3/uL (0-1.3); Monocytes % (auto) 5.1 % (0.0-12.0); Neutrophils % (auto) 92.6 % (37.0-80.0); Platelet Count (auto) 151 10^3/uL (140-450); Red Blood Cells 2.49 10^6/uL (4.0-5.20)
[2020-09-14 06:42] LABS: Red Cell Distribution Width 20.5 % (11.8-14.3)
[2020-09-14 07:00] LABS: Albumin 2.4 g/dL (3.4-5.0); BUN/Creatinine Ratio 16.5; Bilirubin, Total 0.6 mg/dL (0.2-1.0); CRP High Sensitivity 11.3 mg/dL (< 0.3); Calcium 7.2 mg/dL (8.5-10.1); Total Protein 6.1 g/dL (6.4-8.2)
[2020-09-14 08:00] VITALS: BP 109/77
[2020-09-14] MEDS: SEVELAMER 800 MG TAB PO SCH ×3 (09:08→17:41)
[2020-09-14] MEDS: FERROUS SULFATE 325 MG TAB PO SCH (09:08)
[2020-09-14] MEDS: cefTRIAXone 1GM/50ML D5W 50 ML IV SCH (09:08)
[2020-09-14] MEDS: DexAMETHasone SOD PHOS 10MG/1ML VIAL INJ IV SCH (11:41)
[2020-09-14] MEDS: ASPirin 81 mg TAB PO SCH (11:41)
[2020-09-14] MEDS: DOCUSATE SOD 100 MG CAP PO SCH (11:41)
[2020-09-14] MEDS: ZINC SULFATE 220mg CAP or TAB PO SCH (11:41)
[2020-09-14] MEDS: PANTOPRAZOLE 40 MG/10 ML VIAL INJ IV SCH ×2 (11:41→23:33)
[2020-09-14] MEDS: CARVEDILOL 12.5 MG TAB PO SCH ×2 (11:42→23:33)
[2020-09-14] MEDS: CHOLECALCIFEROL (VITD3) 1,000UNIT=25mCg TAB PO SCH (11:42)
[2020-09-14] MEDS: B-COMPLEX W/ C & FOLIC ACID(NEPHROVITE TAB) PO SCH (11:42)
[2020-09-14] MEDS: ASCORBIC ACID 500 MG TAB PO SCH (11:42)
[2020-09-14] MEDS: AZITHROMYCIN 250 MG TAB PO SCH (11:43)
[2020-09-14 12:00] VITALS: BP 141/81
[2020-09-14] MEDS: CINACALCET HYDROCHLORIDE 30 MG TAB PO SCH (13:14)
[2020-09-14 17:00] VITALS: BP 150/73
[2020-09-14 22:00] VITALS: BP 139/85
[2020-09-14] MEDS: LORazepam 0.5 MG TAB PO PRN (23:33)
[2020-09-15] MEDS ORDERED: SODIUM CHL 0.9% 1000 ML BAG XX ONE (07:00)
[2020-09-15 07:31] LABS: Hemoglobin 7.6 g/dL (12.2-16.2); Red Blood Cells 2.58 10^6/uL (4.0-5.20)
[2020-09-15 07:34] LABS: Mean Corpuscular Hemoglobin 29.4 pg (28.0-32.0); Mean Corpuscular Hgb Conc. 31.7 g/dL (32.0-36.0); Platelet Count (auto) 174 10^3/uL (140-450); White Blood Cell 14.4 10^3/uL (4.4-10.8)
[2020-09-15 07:39] LABS: Red Cell Distribution Width 20.7 % (11.8-14.3)
[2020-09-15 07:40] LABS: Band Neutrophils % (manual) 0; Basophils % (manual) 0 (0.0-2.0); Blast Cells 0; Eosinophils % (manual) 0 (0-7); Metamyelocytes % 0; Promyelocytes % 0; Reactive Lymphocytes 0
[2020-09-15] MEDS: FERROUS SULFATE 325 MG TAB PO SCH (08:00)
[2020-09-15] MEDS: SEVELAMER 800 MG TAB PO SCH ×3 (08:00→18:00)
[2020-09-15 08:20] LABS: Potassium 5.4 mmol/L (3.5-5.1)
[2020-09-15 08:40] VITALS: BP 143/86
[2020-09-15 08:40] LABS: Lymphocytes % (manual) 1 (10.0-50.0); Monocytes % (manual) 5 (0-12); Myelocytes % 1
[2020-09-15 09:00] VITALS: BP 143/86
[2020-09-15] MEDS: cefTRIAXone 1GM/50ML D5W 50 ML IV SCH (09:00)
[2020-09-15 09:12] LABS: Albumin 2.4 g/dL (3.4-5.0); BUN/Creatinine Ratio 16.2; Bilirubin, Total 0.5 mg/dL (0.2-1.0); Calcium 7.3 mg/dL (8.5-10.1); Total Protein 6.5 g/dL (6.4-8.2)
[2020-09-15] MEDS: ASPirin 81 mg TAB PO SCH (09:27)
[2020-09-15] MEDS: PANTOPRAZOLE 40 MG/10 ML VIAL INJ IV SCH ×2 (09:27→22:22)
[2020-09-15] MEDS: CHOLECALCIFEROL (VITD3) 1,000UNIT=25mCg TAB PO SCH (09:28)
[2020-09-15] MEDS: DOCUSATE SOD 100 MG CAP PO SCH (09:28)
[2020-09-15] MEDS: ZINC SULFATE 220mg CAP or TAB PO SCH (09:28)
[2020-09-15] MEDS: B-COMPLEX W/ C & FOLIC ACID(NEPHROVITE TAB) PO SCH (09:28)
[2020-09-15] MEDS: ASCORBIC ACID 500 MG TAB PO SCH (09:28)
[2020-09-15] MEDS: prednisoLONE 15 MG/5 ML ORAL UD PO SCH (10:00)
[2020-09-15 12:00] VITALS: BP 154/81
[2020-09-15] MEDS: CINACALCET HYDROCHLORIDE 30 MG TAB PO SCH (13:00)
[2020-09-15] MEDS: AZITHROMYCIN 250 MG TAB PO SCH (13:00)
[2020-09-15] MEDS: CARVEDILOL 12.5 MG TAB PO SCH ×2 (13:01→22:22)
[2020-09-15 17:00] VITALS: BP 155/73
[2020-09-15] MEDS ORDERED: EPOETIN ALFA 10,000 UNIT/1 ML VIAL SC ONE (21:00)
[2020-09-15 22:00] VITALS: BP 143/64
[2020-09-15] MEDS: LORazepam 0.5 MG TAB PO PRN (22:23)
[2020-09-16 05:00] VITALS: BP 118/76
[2020-09-16 09:00] VITALS: BP 109/65
[2020-09-16] MEDS: PANTOPRAZOLE 40 MG/10 ML VIAL INJ IV SCH ×2 (09:07→23:52)
[2020-09-16] MEDS: SEVELAMER 800 MG TAB PO SCH ×3 (09:08→18:12)
[2020-09-16] MEDS: ASPirin 81 mg TAB PO SCH (09:09)
[2020-09-16] MEDS: cefTRIAXone 1GM/50ML D5W 50 ML IV SCH (09:09)
[2020-09-16] MEDS: FERROUS SULFATE 325 MG TAB PO SCH (09:09)
[2020-09-16] MEDS: ZINC SULFATE 220mg CAP or TAB PO SCH (09:10)
[2020-09-16] MEDS: B-COMPLEX W/ C & FOLIC ACID(NEPHROVITE TAB) PO SCH (09:10)
[2020-09-16] MEDS: ASCORBIC ACID 500 MG TAB PO SCH (09:11)
[2020-09-16] MEDS: CHOLECALCIFEROL (VITD3) 1,000UNIT=25mCg TAB PO SCH (09:11)
[2020-09-16] MEDS: CINACALCET HYDROCHLORIDE 30 MG TAB PO SCH (09:11)
[2020-09-16] MEDS: CARVEDILOL 12.5 MG TAB PO SCH ×2 (09:18→23:53)
[2020-09-16] MEDS: DOCUSATE SOD 100 MG CAP PO SCH (09:35)
[2020-09-16] MEDS: prednisoLONE 15 MG/5 ML ORAL UD PO SCH (10:00)
[2020-09-16 13:00] VITALS: BP 126/92
[2020-09-17] VITALS: BP 137/88
[2020-09-17 09:00] VITALS: BP 140/60
[2020-09-17] MEDS: DOCUSATE SOD 100 MG CAP PO SCH (11:05)
[2020-09-17] MEDS: B-COMPLEX W/ C & FOLIC ACID(NEPHROVITE TAB) PO SCH (11:06)
[2020-09-17] MEDS: cefTRIAXone 1GM/50ML D5W 50 ML IV SCH (11:06)
[2020-09-17] MEDS: ASPirin 81 mg TAB PO SCH (11:06)
[2020-09-17] MEDS: CARVEDILOL 12.5 MG TAB PO SCH ×2 (11:08→22:22)
[2020-09-17] MEDS: ASCORBIC ACID 500 MG TAB PO SCH (11:09)
[2020-09-17] MEDS: FERROUS SULFATE 325 MG TAB PO SCH (11:10)
[2020-09-17] MEDS: PANTOPRAZOLE 40 MG/10 ML VIAL INJ IV SCH ×2 (11:11→22:00)
[2020-09-17] MEDS: ZINC SULFATE 220mg CAP or TAB PO SCH (11:24)
[2020-09-17] MEDS: SEVELAMER 800 MG TAB PO SCH ×3 (11:24→17:44)
[2020-09-17] MEDS: CHOLECALCIFEROL (VITD3) 1,000UNIT=25mCg TAB PO SCH (11:28)
[2020-09-17] MEDS: CINACALCET HYDROCHLORIDE 30 MG TAB PO SCH (11:31)
[2020-09-17] MEDS: prednisoLONE 15 MG/5 ML ORAL UD PO SCH (11:32)
[2020-09-17 12:22] LABS: Hematocrit 24.6 % (36.0-46.0); Hemoglobin 7.9 g/dL (12.2-16.2); Mean Corpuscular Hemoglobin 28.9 pg (28.0-32.0); Mean Corpuscular Volume 90.2 fL (80.0-100.0); Platelet Count (auto) 158 10^3/uL (140-450); Red Blood Cells 2.73 10^6/uL (4.0-5.20); White Blood Cell 15.5 10^3/uL (4.4-10.8)
[2020-09-17 12:29] LABS: Basophils % (manual) 0 (0.0-2.0); Blast Cells 0; Eosinophils % (manual) 0 (0-7); Metamyelocytes % 0; Promyelocytes % 0; Reactive Lymphocytes 0; Red Cell Distribution Width 20.6 % (11.8-14.3)
[2020-09-17 12:44] LABS: Potassium 4.7 mmol/L (3.5-5.1)
[2020-09-17 12:51] LABS: Albumin 2.3 g/dL (3.4-5.0); BUN/Creatinine Ratio 15.6; Bilirubin, Total 0.5 mg/dL (0.2-1.0); Calcium 6.2 mg/dL (8.5-10.1); Magnesium 2.2 mg/dL (1.6-2.6); Total Protein 6.3 g/dL (6.4-8.2)
[2020-09-17 13:00] VITALS: BP 128/50
[2020-09-17 13:58] LABS: Band Neutrophils % (manual) 1; Lymphocytes % (manual) 4 (10.0-50.0); Monocytes % (manual) 4 (0-12); Myelocytes % 2
[2020-09-17 16:00] VITALS: BP 125/45
[2020-09-17 16:33] LABS: CRP High Sensitivity 9.12 mg/dL (< 0.3)
[2020-09-18] VITALS: BP 117/70
[2020-09-18] MEDS: CHOLECALCIFEROL (VITD3) 1,000UNIT=25mCg TAB PO SCH (10:00)
[2020-09-18] MEDS: ASCORBIC ACID 500 MG TAB PO SCH (10:00)
[2020-09-18] MEDS: ZINC SULFATE 220mg CAP or TAB PO SCH (10:00)
[2020-09-18] MEDS: B-COMPLEX W/ C & FOLIC ACID(NEPHROVITE TAB) PO SCH (10:00)
[2020-09-18] MEDS: CARVEDILOL 12.5 MG TAB PO SCH ×2 (10:00→22:00)
[2020-09-18] MEDS: DOCUSATE SOD 100 MG CAP PO SCH (10:00)
[2020-09-18] MEDS: prednisoLONE 15 MG/5 ML ORAL UD PO SCH (10:00)
[2020-09-18] MEDS: ASPirin 81 mg TAB PO SCH (10:00)
[2020-09-18] MEDS: CINACALCET HYDROCHLORIDE 30 MG TAB PO SCH (10:00)
[2020-09-18] MEDS: SEVELAMER 800 MG TAB PO SCH ×3 (11:00→18:00)
[2020-09-18] MEDS: FERROUS SULFATE 325 MG TAB PO SCH (11:00)
[2020-09-18] MEDS: cefTRIAXone 1GM/50ML D5W 50 ML IV SCH (14:03)
[2020-09-18] MEDS: PANTOPRAZOLE 40 MG/10 ML VIAL INJ IV SCH ×2 (14:03→22:00)
[2020-09-19] VITALS: BP 125/100
[2020-09-19] MEDS: CARVEDILOL 12.5 MG TAB PO SCH ×3 (06:11→21:36)
[2020-09-19 08:00] VITALS: BP_SYST 117; BP_DIAS 73; BP_DIAS 75
[2020-09-19] MEDS: SEVELAMER 800 MG TAB PO SCH ×3 (08:00→18:04)
[2020-09-19] MEDS: FERROUS SULFATE 325 MG TAB PO SCH (08:00)
[2020-09-19] MEDS: cefTRIAXone 1GM/50ML D5W 50 ML IV SCH (09:29)
[2020-09-19] MEDS: prednisoLONE 15 MG/5 ML ORAL UD PO SCH (10:00)
[2020-09-19] MEDS: DOCUSATE SOD 100 MG CAP PO SCH (11:06)
[2020-09-19] MEDS: ASPirin 81 mg TAB PO SCH (11:08)
[2020-09-19] MEDS: PANTOPRAZOLE 40 MG/10 ML VIAL INJ IV SCH ×2 (11:12→21:36)
[2020-09-19] MEDS: CINACALCET HYDROCHLORIDE 30 MG TAB PO SCH (11:12)
[2020-09-19] MEDS: ASCORBIC ACID 500 MG TAB PO SCH (11:13)
[2020-09-19] MEDS: CHOLECALCIFEROL (VITD3) 1,000UNIT=25mCg TAB PO SCH (11:14)
[2020-09-19] MEDS: B-COMPLEX W/ C & FOLIC ACID(NEPHROVITE TAB) PO SCH (11:15)
[2020-09-19] MEDS: ZINC SULFATE 220mg CAP or TAB PO SCH (11:17)
[2020-09-19 21:34] VITALS: BP 108/67
[2020-09-20 07:29] LABS: Basophils # (auto) 0 10 ^3/uL (0-0.2); Eosinophils # (auto) 0 10 ^3/uL (0-0.8); Lymphocytes # (auto) 0.3 10 ^3/uL (0.4-5.4); Lymphocytes % (auto) 3.1 % (10.0-50.0); Monocytes # (auto) 0.8 10 ^3/uL (0-1.3); Nucleated Red Blood Cells % 0.1 %
[2020-09-20 07:31] LABS: Basophils % (auto) 0.2 % (0.0-2.0); Hematocrit 19.8 % (36.0-46.0); Mean Corpuscular Hemoglobin 30.4 pg (28.0-32.0); Mean Corpuscular Hgb Conc. 33.1 g/dL (32.0-36.0); Monocytes % (auto) 7.5 % (0.0-12.0); Neutrophils # (auto) 9.2 10 ^3/uL (1.6-8.6); Neutrophils % (auto) 89.2 % (37.0-80.0); Platelet Count (auto) 113 10^3/uL (140-450); Red Blood Cells 2.16 10^6/uL (4.0-5.20); White Blood Cell 10.3 10^3/uL (4.4-10.8)
[2020-09-20 07:41] LABS: Red Cell Distribution Width 20.8 % (11.8-14.3)
[2020-09-20 07:44] LABS: Potassium 4.8 mmol/L (3.5-5.1)
[2020-09-20 07:51] LABS: Hemoglobin 6.6 g/dL (12.2-16.2)
[2020-09-20 07:59] LABS: Albumin 2.2 g/dL (3.4-5.0); BUN/Creatinine Ratio 15.9; Bilirubin, Total 0.4 mg/dL (0.2-1.0); CRP High Sensitivity 13.5 mg/dL (< 0.3); Calcium 6.8 mg/dL (8.5-10.1); Total Protein 5.9 g/dL (6.4-8.2)
[2020-09-20 08:00] VITALS: BP 120/61
[2020-09-20] MEDS: SEVELAMER 800 MG TAB PO SCH ×3 (08:07→18:12)
[2020-09-20] MEDS: FERROUS SULFATE 325 MG TAB PO SCH (08:07)
[2020-09-20] MEDS: cefTRIAXone 1GM/50ML D5W 50 ML IV SCH (09:03)
[2020-09-20] MEDS: ASCORBIC ACID 500 MG TAB PO SCH (10:00)
[2020-09-20] MEDS: CHOLECALCIFEROL (VITD3) 1,000UNIT=25mCg TAB PO SCH (10:00)
[2020-09-20] MEDS: CARVEDILOL 12.5 MG TAB PO SCH ×2 (10:00→21:56)
[2020-09-20] MEDS: PANTOPRAZOLE 40 MG/10 ML VIAL INJ IV SCH ×2 (11:33→21:54)
[2020-09-20] MEDS: predniSONE 5 MG TAB PO SCH (11:33)
[2020-09-20] MEDS: ASPirin 81 mg TAB PO SCH (11:34)
[2020-09-20] MEDS: DOCUSATE SOD 100 MG CAP PO SCH (11:34)
[2020-09-20] MEDS: B-COMPLEX W/ C & FOLIC ACID(NEPHROVITE TAB) PO SCH (11:36)
[2020-09-20] MEDS: CINACALCET HYDROCHLORIDE 30 MG TAB PO SCH (11:38)
[2020-09-20] MEDS: ZINC SULFATE 220mg CAP or TAB PO SCH (11:54)
[2020-09-20] MEDS ORDERED: SODIUM CHL 0.9% 1000 ML BAG XX ONE (12:45)
[2020-09-20 16:00] VITALS: BP 123/72
[2020-09-20] MEDS ORDERED: EPOETIN ALFA 10,000 UNIT/1 ML VIAL SC ONE (21:00)
[2020-09-20 23:01] VITALS: BP 104/64
[2020-09-20 23:18] VITALS: BP 110/74
[2020-09-21] VITALS: BP 120/89
[2020-09-21 01:38] VITALS: BP 107/77
[2020-09-21 08:00] VITALS: BP_SYST 107; BP_SYST 117; BP_DIAS 54; BP_DIAS 77
[2020-09-21] MEDS: FERROUS SULFATE 325 MG TAB PO SCH (08:00)
[2020-09-21] MEDS: SEVELAMER 800 MG TAB PO SCH ×3 (08:00→18:00)
[2020-09-21] MEDS: cefTRIAXone 1GM/50ML D5W 50 ML IV SCH (09:00)
[2020-09-21] MEDS: DOCUSATE SOD 100 MG CAP PO SCH (09:41)
[2020-09-21] MEDS: ZINC SULFATE 220mg CAP or TAB PO SCH (09:41)
[2020-09-21] MEDS: PANTOPRAZOLE 40 MG/10 ML VIAL INJ IV SCH ×2 (09:41→22:31)
[2020-09-21] MEDS: ASPirin 81 mg TAB PO SCH (09:41)
[2020-09-21] MEDS: B-COMPLEX W/ C & FOLIC ACID(NEPHROVITE TAB) PO SCH (09:41)
[2020-09-21] MEDS: predniSONE 5 MG TAB PO SCH (09:41)
[2020-09-21] MEDS: ASCORBIC ACID 500 MG TAB PO SCH (09:42)
[2020-09-21] MEDS: CARVEDILOL 12.5 MG TAB PO SCH ×2 (09:42→22:00)
[2020-09-21] MEDS: CHOLECALCIFEROL (VITD3) 1,000UNIT=25mCg TAB PO SCH (09:42)
[2020-09-21] MEDS: CINACALCET HYDROCHLORIDE 30 MG TAB PO SCH (09:42)
[2020-09-21 10:45] LABS: Basophils # (auto) 0 10 ^3/uL (0-0.2); Eosinophils # (auto) 0 10 ^3/uL (0-0.8); Eosinophils % (auto) 0.1 % (0.0-7.0); Lymphocytes # (auto) 0.3 10 ^3/uL (0.4-5.4); Monocytes # (auto) 0.9 10 ^3/uL (0-1.3); Nucleated Red Blood Cells % 0.2 %
[2020-09-21 10:46] LABS: Basophils % (auto) 0.3 % (0.0-2.0); Hematocrit 22.2 % (36.0-46.0); Hemoglobin 7.3 g/dL (12.2-16.2); Lymphocytes % (auto) 3.2 % (10.0-50.0); Mean Corpuscular Hemoglobin 30.5 pg (28.0-32.0); Mean Corpuscular Hgb Conc. 32.8 g/dL (32.0-36.0); Mean Corpuscular Volume 92.9 fL (80.0-100.0); Monocytes % (auto) 10.5 % (0.0-12.0); Neutrophils # (auto) 7.7 10 ^3/uL (1.6-8.6); Neutrophils % (auto) 85.9 % (37.0-80.0); Platelet Count (auto) 116 10^3/uL (140-450); Red Blood Cells 2.39 10^6/uL (4.0-5.20); White Blood Cell 8.9 10^3/uL (4.4-10.8)
[2020-09-21 10:55] LABS: Red Cell Distribution Width 21.3 % (11.8-14.3)
[2020-09-21 11:03] LABS: Albumin 2.4 g/dL (3.4-5.0); Calcium 6.6 mg/dL (8.5-10.1)
[2020-09-21 11:09] LABS: Bilirubin, Total 0.6 mg/dL (0.2-1.0); Potassium 4.2 mmol/L (3.5-5.1); Total Protein 6.6 g/dL (6.4-8.2)
[2020-09-21 16:00] VITALS: BP 105/66
[2020-09-22] VITALS: BP 110/79
[2020-09-22 08:00] VITALS: BP 118/60
[2020-09-22] MEDS: FERROUS SULFATE 325 MG TAB PO SCH (08:38)
[2020-09-22] MEDS: SEVELAMER 800 MG TAB PO SCH ×3 (08:38→18:00)
[2020-09-22] MEDS: DOCUSATE SOD 100 MG CAP PO SCH (08:39)
[2020-09-22] MEDS: ASPirin 81 mg TAB PO SCH (08:39)
[2020-09-22] MEDS: ZINC SULFATE 220mg CAP or TAB PO SCH (08:39)
[2020-09-22] MEDS: predniSONE 5 MG TAB PO SCH (08:39)
[2020-09-22] MEDS: B-COMPLEX W/ C & FOLIC ACID(NEPHROVITE TAB) PO SCH (08:40)
[2020-09-22] MEDS: CHOLECALCIFEROL (VITD3) 1,000UNIT=25mCg TAB PO SCH (08:40)
[2020-09-22] MEDS: CINACALCET HYDROCHLORIDE 30 MG TAB PO SCH (08:40)
[2020-09-22] MEDS: ASCORBIC ACID 500 MG TAB PO SCH (08:40)
[2020-09-22 09:00] VITALS: BP 134/70
[2020-09-22] MEDS: cefTRIAXone 1GM/50ML D5W 50 ML IV SCH (09:00)
[2020-09-22] MEDS: CARVEDILOL 12.5 MG TAB PO SCH ×2 (10:00→21:29)
[2020-09-22] MEDS: PANTOPRAZOLE 40 MG/10 ML VIAL INJ IV SCH ×2 (10:00→21:16)
[2020-09-22 15:53] VITALS: BP 132/62
[2020-09-22 17:00] VITALS: BP 113/77
[2020-09-22] MEDS ORDERED: DexAMETHasone SOD PHOS 10MG/1ML VIAL INJ IV ONE (21:00)
[2020-09-22] MEDS ORDERED: diphenhdrAMINE HCL 50 MG/1 ML VL IV ONE (21:00)
[2020-09-22] MEDS ORDERED: EPOETIN ALFA 10,000 UNIT/1 ML VIAL IV ONE (21:00)
[2020-09-22] MEDS ORDERED: diphenhdrAMINE HCL 25 MG CAP PO ONE (21:15)
[2020-09-22] MEDS ORDERED: DexAMETHasone 4 MG TAB PO ONE (21:15)
[2020-09-22] MEDS ORDERED: diphenhdrAMINE HCL 50 MG/1 ML VL IM PRN (23:15)
[2020-09-22] MEDS ORDERED: methylPREDNISolone SOD SUCC 125 MG/2 ML VL IV PRN (23:15)
[2020-09-22] MEDS ORDERED: diphenhdrAMINE HCL 50 MG/1 ML VL IM ONE (23:15)
[2020-09-22] MEDS ORDERED: methylPREDNISolone SOD SUCC 125 MG/2 ML VL IM ONE (23:15)
[2020-09-23] VITALS (17 sets, daily range): BP systolic 88–164; BP diastolic 45–93
[2020-09-23 06:26] LABS: Basophils # (auto) 0 10 ^3/uL (0-0.2); Eosinophils # (auto) 0 10 ^3/uL (0-0.8); Hemoglobin 7.5 g/dL (12.2-16.2); Lymphocytes # (auto) 0.2 10 ^3/uL (0.4-5.4); Monocytes # (auto) 0.6 10 ^3/uL (0-1.3); White Blood Cell 8.5 10^3/uL (4.4-10.8)
[2020-09-23 06:30] LABS: Hematocrit 22.9 % (36.0-46.0); Lymphocytes % (auto) 1.9 % (10.0-50.0); Mean Corpuscular Hemoglobin 29.7 pg (28.0-32.0); Mean Corpuscular Hgb Conc. 32.5 g/dL (32.0-36.0); Mean Corpuscular Volume 91.4 fL (80.0-100.0); Monocytes % (auto) 7.1 % (0.0-12.0); Neutrophils # (auto) 7.8 10 ^3/uL (1.6-8.6); Nucleated Red Blood Cells % 0.3 %; Platelet Count (auto) 112 10^3/uL (140-450); Red Blood Cells 2.51 10^6/uL (4.0-5.20); Red Cell Distribution Width 20.9 % (11.8-14.3)
[2020-09-23 06:43] LABS: Potassium 4.1 mmol/L (3.5-5.1)
[2020-09-23 07:34] LABS: Albumin 2.2 g/dL (3.4-5.0); BUN/Creatinine Ratio 14.4; Bilirubin, Total 0.6 mg/dL (0.2-1.0); Calcium 7.8 mg/dL (8.5-10.1); Magnesium 2.1 mg/dL (1.6-2.6)
[2020-09-23] MEDS: SEVELAMER 800 MG TAB PO SCH ×3 (08:00→18:00)
[2020-09-23] MEDS: FERROUS SULFATE 325 MG TAB PO SCH (08:00)
[2020-09-23 09:05] LABS: Total Protein 6.3 g/dL (6.4-8.2)
[2020-09-23] MEDS ORDERED: HEPARIN SODIUM (PORCINE) 5000 UNITS/ML 1ML VIAL IV ONE ×2 (09:15)
[2020-09-23] MEDS ORDERED: HEPARIN DRIP/D5W 100UNITS/ML 250 ML IV SCH (09:15)
[2020-09-23] MEDS: DOCUSATE SOD 100 MG CAP PO SCH (10:00)
[2020-09-23] MEDS: ASCORBIC ACID 500 MG TAB PO SCH (10:00)
[2020-09-23] MEDS: CINACALCET HYDROCHLORIDE 30 MG TAB PO SCH (10:00)
[2020-09-23] MEDS: predniSONE 5 MG TAB PO SCH (10:00)
[2020-09-23] MEDS: ASPirin 81 mg TAB PO SCH (10:00)
[2020-09-23] MEDS: ZINC SULFATE 220mg CAP or TAB PO SCH (10:00)
[2020-09-23] MEDS: B-COMPLEX W/ C & FOLIC ACID(NEPHROVITE TAB) PO SCH (10:00)
[2020-09-23] MEDS: CHOLECALCIFEROL (VITD3) 1,000UNIT=25mCg TAB PO SCH (10:00)
[2020-09-23] MEDS: CARVEDILOL 12.5 MG TAB PO SCH ×2 (10:00→22:00)
[2020-09-23] MEDS ORDERED: LIDOCAINE 2%HCL (LOCAL ANESTH.) INJ 20ML MDV ONE (11:02)
[2020-09-23] MEDS: PANTOPRAZOLE 40 MG/10 ML VIAL INJ IV SCH ×2 (12:30→22:23)
[2020-09-23 14:57] LABS: INR 1.49 (0.9-1.15); Partial Thromboplastin Time 35.4 sec (23.0-31.2)
[2020-09-23] MEDS: HEPARIN DRIP/D5W 100UNITS/ML 250 ML IV SCH ×2 (15:14→23:32)
[2020-09-23] MEDS ORDERED: SUCCINYLCHOLINE CHLORIDE 20 MG/ML 10ML VIAL IV ONE (20:51)
[2020-09-23] MEDS ORDERED: ETOMIDATE (2MG/ML) 20ML VIAL IV ONE (20:52)
[2020-09-23] MEDS: NOREPINEPHRINE 8 MG/250ML KIT 250 ML IV SCH (21:20)
[2020-09-23] MEDS ORDERED: MIDAZOLAM DRIP 50 mg/50mL 50 ML IV ONE (21:29)
[2020-09-23] MEDS: MIDAZOLAM DRIP 50 mg/50mL 50 ML IV SCH (21:30)
[2020-09-23 23:06] LABS: INR 1.63 (0.9-1.15)
[2020-09-23 23:08] LABS: BUN/Creatinine Ratio 14.1; Calcium 7.3 mg/dL (8.5-10.1)
[2020-09-23 23:10] LABS: Partial Thromboplastin Time 76.6 sec (23.0-31.2)
[2020-09-24] VITALS (97 sets, daily range): BP systolic 73–172; BP diastolic 37–99
[2020-09-24] MEDS: MIDAZOLAM DRIP 50 mg/50mL 50 ML IV SCH ×3 (01:00→21:30)
[2020-09-24] MEDS ORDERED: MIDAZOLAM DRIP 50 mg/50mL 50 ML IV ONE (01:17)
[2020-09-24] MEDS: NOREPINEPHRINE 8 MG/250ML KIT 250 ML IV SCH (03:00)
[2020-09-24 06:19] LABS: Basophils # (auto) 0 10 ^3/uL (0-0.2); Eosinophils # (auto) 0 10 ^3/uL (0-0.8); Hemoglobin 7.5 g/dL (12.2-16.2); Nucleated Red Blood Cells % 1.3 %; Red Cell Distribution Width 20.6 % (11.8-14.3)
[2020-09-24 06:21] LABS: Basophils % (auto) 0.3 % (0.0-2.0); Hematocrit 23.1 % (36.0-46.0); Lymphocytes # (auto) 0.4 10 ^3/uL (0.4-5.4); Lymphocytes % (auto) 6.3 % (10.0-50.0); Mean Corpuscular Hemoglobin 29.7 pg (28.0-32.0); Mean Corpuscular Hgb Conc. 32.5 g/dL (32.0-36.0); Mean Corpuscular Volume 91.3 fL (80.0-100.0); Monocytes # (auto) 0.5 10 ^3/uL (0-1.3); Monocytes % (auto) 6.4 % (0.0-12.0); Neutrophils # (auto) 6.2 10 ^3/uL (1.6-8.6); Platelet Count (auto) 107 10^3/uL (140-450); Red Blood Cells 2.53 10^6/uL (4.0-5.20); White Blood Cell 7.1 10^3/uL (4.4-10.8)
[2020-09-24 06:36] LABS: INR 1.55 (0.9-1.15); Partial Thromboplastin Time 41.2 sec (23.0-31.2)
[2020-09-24] MEDS ORDERED: SODIUM CHL 0.9% 1000 ML BAG XX ONE (07:00)
[2020-09-24 07:07] LABS: Potassium 4.3 mmol/L (3.5-5.1)
[2020-09-24 07:13] LABS: BUN/Creatinine Ratio 14.7; Calcium 7.2 mg/dL (8.5-10.1)
[2020-09-24] MEDS: SEVELAMER 800 MG TAB PO SCH ×3 (08:00→18:00)
[2020-09-24] MEDS: ASPirin 81 mg TAB PO SCH (10:00)
[2020-09-24] MEDS: CARVEDILOL 12.5 MG TAB PO SCH ×2 (10:00→21:54)
[2020-09-24] MEDS: DOCUSATE SOD 100 MG CAP PO SCH (10:00)
[2020-09-24] MEDS: ZINC SULFATE 220mg CAP or TAB PO SCH (13:15)
[2020-09-24] MEDS: ASCORBIC ACID 500 MG TAB PO SCH (13:15)
[2020-09-24] MEDS: B-COMPLEX W/ C & FOLIC ACID(NEPHROVITE TAB) PO SCH (13:15)
[2020-09-24] MEDS: CINACALCET HYDROCHLORIDE 30 MG TAB PO SCH (13:15)
[2020-09-24] MEDS: CHOLECALCIFEROL (VITD3) 1,000UNIT=25mCg TAB PO SCH (13:15)
[2020-09-24] MEDS: PANTOPRAZOLE 40 MG/10 ML VIAL INJ IV SCH ×2 (13:15→21:54)
[2020-09-24] MEDS: FERROUS SULFATE 325 MG TAB PO SCH (13:15)
[2020-09-24] MEDS: HEPARIN DRIP/D5W 100UNITS/ML 250 ML IV SCH (20:30)
[2020-09-24] MEDS ORDERED: EPOETIN ALFA 4,000 UNIT/ML VL SC ONE (21:00)
[2020-09-25] VITALS (25 sets, daily range): BP systolic 70–121; BP diastolic 12–53
[2020-09-25] MEDS: MIDAZOLAM DRIP 50 mg/50mL 50 ML IV SCH (02:25)
[2020-09-25 04:52] LABS: INR 1.43 (0.9-1.15); Partial Thromboplastin Time 41.6 sec (23.0-31.2)
[2020-09-25 05:34] LABS: Basophils # (auto) 0.1 10 ^3/uL (0-0.2); Basophils % (auto) 0.7 % (0.0-2.0); Eosinophils # (auto) 0.1 10 ^3/uL (0-0.8); Eosinophils % (auto) 1.1 % (0.0-7.0); Hematocrit 14.6 % (36.0-46.0); Lymphocytes # (auto) 0.9 10 ^3/uL (0.4-5.4); Lymphocytes % (auto) 9.5 % (10.0-50.0); Mean Corpuscular Hemoglobin 29.8 pg (28.0-32.0); Mean Corpuscular Hgb Conc. 33.3 g/dL (32.0-36.0); Mean Corpuscular Volume 89.5 fL (80.0-100.0); Monocytes # (auto) 0.6 10 ^3/uL (0-1.3); Monocytes % (auto) 6.3 % (0.0-12.0); Neutrophils # (auto) 8.1 10 ^3/uL (1.6-8.6); Neutrophils % (auto) 82.4 % (37.0-80.0); Nucleated Red Blood Cells % 5.2 %; Platelet Count (auto) 92 10^3/uL (140-450); Red Blood Cells 1.63 10^6/uL (4.0-5.20); White Blood Cell 9.8 10^3/uL (4.4-10.8)
[2020-09-25 05:35] LABS: Red Cell Distribution Width 20.9 % (11.8-14.3)
[2020-09-25 05:45] LABS: Hemoglobin 4.8 g/dL (12.2-16.2)
[2020-09-25] MEDS ORDERED: ALBUMIN 5% 250 ML IV ONE (05:45)
[2020-09-25] MEDS ORDERED: PHENYLEPHRINE IV 250 ML IV ONE ×2 (06:05→06:44)
[2020-09-25] MEDS ORDERED: ATROPINE SULFATE 1 MG/1 ML VIAL ONE (06:25)
[2020-09-25] MEDS ORDERED: PHENYLEPHRINE IV 250 ML IV SCH (07:45)
[2020-09-25] MEDS ORDERED: VASOPRESSIN 20 UNIT/ML ONE (07:51)
[2020-09-25 07:58] LABS: Hematocrit 12.5 % (36.0-46.0); Mean Corpuscular Hemoglobin 29.9 pg (28.0-32.0); Mean Corpuscular Hgb Conc. 32.3 g/dL (32.0-36.0); Mean Corpuscular Volume 92.8 fL (80.0-100.0); Platelet Count (auto) 83 10^3/uL (140-450); Red Blood Cells 1.35 10^6/uL (4.0-5.20); White Blood Cell 11.1 10^3/uL (4.4-10.8)
[2020-09-25 08:08] LABS: Red Cell Distribution Width 21.2 % (11.8-14.3)
[2020-09-25 08:10] LABS: Basophils % (manual) 0 (0.0-2.0); Blast Cells 0; Eosinophils % (manual) 0 (0-7); Promyelocytes % 0; Reactive Lymphocytes 0
[2020-09-25 08:20] LABS: INR 1.78 (0.9-1.15)
[2020-09-25 08:27] LABS: Albumin 1.7 g/dL (3.4-5.0); BUN/Creatinine Ratio 13.9; Bilirubin, Total 0.6 mg/dL (0.2-1.0); Total Protein 4.4 g/dL (6.4-8.2)
[2020-09-25 08:28] LABS: Partial Thromboplastin Time 128.7 sec (23.0-31.2)
[2020-09-25 08:33] LABS: Calcium 5.9 mg/dL (8.5-10.1)
[2020-09-25 09:46] LABS: Band Neutrophils % (manual) 9; Lymphocytes % (manual) 9 (10.0-50.0); Metamyelocytes % 4; Monocytes % (manual) 8 (0-12); Myelocytes % 1
[2020-09-25] MEDS ORDERED: EPINEPHrine HCL 1 MG/10 ML SYRG IV ONE ×2 (10:27→10:28)
[2020-09-25] MEDS ORDERED: SODIUM BICARBONATE 8.4% INJ 50ML SYRINGE IV ONE ×2 (10:27→10:28)
[2020-09-25] MEDS ORDERED: CALCIUM CHLOR(10%) 100MG/ML 10ML SYRINGE IV ONE (10:27)
[2020-09-26] MEDS ORDERED: SODIUM CHL 0.9% 1000 ML BAG XX ONE (07:00)
== END 2020-09-25 15:00 | DRG 720 ==
LOC: EDBD 13:43 → ER 13:43 → TELE 13:44 → TELE-CENTR 09-05 19:58 → TELE-WESTW 09-08 18:08 → ICU WEST 09-24 02:23
PROVIDERS: ADMIT Nurse Practitioner; ATTEND Nurse Practitioner
PROC: 05HA33Z Insertion of Infusion Device into Left Brachial Vein, Percutaneous Approach (ICD-10-PCS; 2020-09-05)
PROC: B54NZZA Ultrasonography of Left Upper Extremity Veins, Guidance (ICD-10-PCS; 2020-09-05)
PROC: 5A1D70Z Performance of Urinary Filtration, Intermittent, Less than 6 Hours Per Day (ICD-10-PCS; 2020-09-05)
PROC: 5A1D70Z Performance of Urinary Filtration, Intermittent, Less than 6 Hours Per Day (ICD-10-PCS; 2020-09-06)
PROC: XW033E5 Introduction of Remdesivir Anti-infective into Peripheral Vein, Percutaneous Approach, New Technology Group 5 (ICD-10-PCS; 2020-09-07)
PROC: 5A1D70Z Performance of Urinary Filtration, Intermittent, Less than 6 Hours Per Day (ICD-10-PCS; 2020-09-10)
PROC: 5A1D70Z Performance of Urinary Filtration, Intermittent, Less than 6 Hours Per Day (ICD-10-PCS; 2020-09-12)
PROC: 5A1D70Z Performance of Urinary Filtration, Intermittent, Less than 6 Hours Per Day (ICD-10-PCS; 2020-09-16)
PROC: 5A1D70Z Performance of Urinary Filtration, Intermittent, Less than 6 Hours Per Day (ICD-10-PCS; 2020-09-18)
PROC: 30233N1 Transfusion of Nonautologous Red Blood Cells into Peripheral Vein, Percutaneous Approach (ICD-10-PCS; 2020-09-20)
PROC: 5A1D70Z Performance of Urinary Filtration, Intermittent, Less than 6 Hours Per Day (ICD-10-PCS; 2020-09-20)
PROC: 5A1D70Z Performance of Urinary Filtration, Intermittent, Less than 6 Hours Per Day (ICD-10-PCS; 2020-09-22)
PROC: 05HA33Z Insertion of Infusion Device into Left Brachial Vein, Percutaneous Approach (ICD-10-PCS; 2020-09-23)
PROC: B54NZZA Ultrasonography of Left Upper Extremity Veins, Guidance (ICD-10-PCS; 2020-09-23)
PROC: 5A1935Z Respiratory Ventilation, Less than 24 Consecutive Hours (ICD-10-PCS; 2020-09-24)
PROC: 0BH17EZ Insertion of Endotracheal Airway into Trachea, Via Natural or Artificial Opening (ICD-10-PCS; 2020-09-24)
PROC: 5A1D70Z Performance of Urinary Filtration, Intermittent, Less than 6 Hours Per Day (ICD-10-PCS; 2020-09-24)
PROC: 5A12012 Performance of Cardiac Output, Single, Manual (ICD-10-PCS; principal; 2020-09-25)
PROC: 06HM33Z Insertion of Infusion Device into Right Femoral Vein, Percutaneous Approach (ICD-10-PCS; 2020-09-25)
DX: A41.89 Other specified sepsis (principal); U07.1 COVID-19; J96.01 Acute respiratory failure with hypoxia; I21.4 Non-ST elevation (NSTEMI) myocardial infarction; I49.01 Ventricular fibrillation; J12.89 Other viral pneumonia; G93.41 Metabolic encephalopathy; I50.23 Acute on chronic systolic (congestive) heart failure; I13.2 Hypertensive heart and chronic kidney disease with heart failure and with stage 5 chronic kidney disease, or end stage renal disease; I82.B12 Acute embolism and thrombosis of left subclavian vein; E87.5 Hyperkalemia; N18.6 End stage renal disease; E83.39 Other disorders of phosphorus metabolism; E11.22 Type 2 diabetes mellitus with diabetic chronic kidney disease; I87.1 Compression of vein; E66.01 Morbid (severe) obesity due to excess calories; R18.8 Other ascites; I42.9 Cardiomyopathy, unspecified; I16.1 Hypertensive emergency; D63.1 Anemia in chronic kidney disease; Z99.2 Dependence on renal dialysis; I46.9 Cardiac arrest, cause unspecified; I25.10 Atherosclerotic heart disease of native coronary artery without angina pectoris; M89.9 Disorder of bone, unspecified; Z88.0 Allergy status to penicillin; Z68.30 Body mass index [BMI] 30.0-30.9, adult; Z74.01 Bed confinement status; Z79.4 Long term (current) use of insulin; Z79.899 Other long term (current) drug therapy; Z91.15 Patient's noncompliance with renal dialysis; Z91.19 Patient's noncompliance with other medical treatment and regimen
CPT/HCPCS: 10022; 36415; 36600; 70450; 71045; 71260; 74177; 76604; 76942; 80048; 80053; 81001; 82040; 82140; 82607; 82668; 82728; 82746; 82805; 82962; 83010; 83540; 83550; 83615; 83735; 83880; 83986; 84100; 84484; 84702; 85007; 85025; 85027; 85045; 85379; 85610; 85652; 85730; 86141; 86850; 86900; 86901; 86920; 87070; 87077; 87186; 87205; 87426; 89051; 90935; 92950; 93005; 93306; 93970; 94003; 96365; 96372; 96375; 97110; 97530; C9113; G0378; J0330; J0461; J0610; J0696; J0885; J1100; J2250; J7510; P9047; Q9967